=== PATIENT | male | born 1960 | race Caucasian/White ===

== ENCOUNTER 2017-01-16 11:15 | Observation (INO) ==
[2017-01-16] MEDS ORDERED: Aspirin 81 MG TAB.CHEW PO ONE (11:32)
[2017-01-16] MEDS ORDERED: Nitroglycerin 0.4 MG TAB.SUBL SL PRN (11:43)
[2017-01-16 11:55] LABS: Basophils # 0.1 K/mcL (0.0-0.2); Basophils % 0.7 %; Eosinophils # 0.3 K/mcL (0.0-0.6); Eosinophils % 3.8 %; Hematocrit 53.1 % (37.5-50.1); Hemoglobin 17.8 g/dL (12.9-16.9); Immature Granulocytes % 0.3 % (0-4); Lymphocytes # 2.7 K/mcL (0.6-4.6); Lymphocytes % 31.5 %; Mean Corpuscular HGB Conc 33.5 g/dL (31.6-35.5); Mean Corpuscular Volume 89.5 fL (83.0-100.0); Mean Platelet Volume 10.4 fL (9.4-12.4); Monocytes # 0.5 K/mcL (0.0-1.3); Monocytes % 5.5 %; Platelet Count 231 K/mcL (140-400); Red Blood Count 5.93 M/mcL (4.19-5.50); Red Cell Distribution Width 13.8 % (11.5-14.5); Segmented Neutrophils % 58.2 %
--- NOTE | 2017-01-16 11:58 | Emergency Department Note ---
Disposition Clinical Impression: Slurred speech Hypertension Qualifiers: Hypertension type: unspecified Qualified Code(s): I10 - Essential (primary) hypertension Chest pain Qualifiers: Chest pain type: unspecified Qualified Code(s): R07.9 - Chest pain, unspecified TIA (transient ischemic attack) Qualifiers: Transient cerebral ischemia type: unspecified Qualified Code(s): G45.9 - Transient cerebral ischemic attack, unspecified Disposition: Admitted As Inpatient Condition: Good Time of Disposition: 13:32 General Adult HPI - General Chief complaint: ED Neuro Symptoms/Deficit Stated complaint: Slurred Speech/Dizzy Time Seen by Provider: 01/16/17 11:18 Source: patient Mode of arrival: wheelchair Limitations: no limitations Nursing Notes Reviewed: Yes Vital Signs Reviewed: Yes - History of Present Illness HPI Narrative: 56-year-old male presents to the ED complaining of slurred speech and mild chest and epigastric pain as well as shortness of breath. Patient states that he went to work today and they noticed he was having slurred speech so they sent him to the urgent care who then sent him here to the emergency department by private vehicle. He states that he feels he does not have slurred speech he has not has not had any weakness or numbness or tingling going down any of his sides. He understood any drooping of his face. He has not had any headaches or blurry vision. He had a similar episode approximate one year ago seen here and diagnosed with a TIA and had high blood pressure and started on amlodipine for blood pressure medication. He has not been nauseous or vomiting. He has not had any fevers. He has been short of breath he says normal as he does smoke. He does have a little bit of epigastric pain that radiates up into his chest. Says it feels like reflux a normally has this. He has not taken any medication for this. There is no worsening with exertion of the symptoms. He has had no changes in bowel movements pain with urination or abdominal pain. He has had no back pain. Patient has no other complaints Pain Scale: 0 - Related Data Home Medications Medication Instructions Recorded Confirmed Lovastatin [Mevacor] 20 mg PO HS 01/16/17 01/16/17 Tamsulosin [Flomax] 0.4 mg PO DAILY 01/16/17 01/16/17 Previous Rx's Medication Instructions Recorded amLODIPine [Norvasc] 5 mg PO DAILY #30 tablet 06/28/15 Allergies Allergy/AdvReac Type Severity Reaction Status Date / Time No Known Allergies Allergy Verified 01/16/17 11:26 Review of Systems: 10 point review of systems done and negative unless otherwise stated in history of present illness. All systems ED: reviewed and negative except as stated. Review of Systems: As Per HPI Past Medical History - Past Medical History Attestation: Yes The following information was validated with the patient. Medical history: Reports: hypertension Psychiatric history: Reports: no psych history - Social History Smoking Status: Current every day smoker Smokeless Tobacco Status: No Alcohol use: Reports: none Drug use: Reports: none Physical Exam - General Limitations: no limitations General appearance: alert, in no apparent distress - Head Head exam: atraumatic, normocephalic, normal inspection - Eye Eye exam: Present: normal appearance, PERRL, EOMI - ENT ENT exam: normal exam, normal oropharynx, mucous membranes moist - Neck Neck exam: Present: normal inspection, full ROM, trachea midline - Chest Chest inspection: Present: normal inspection, symmetric chest wall rise - Respiratory Respiratory exam: Present: normal lung sounds bilaterally - Cardiovascular Cardiovascular exam: Present: regular rate, normal rhythm, normal heart sounds - Abdominal Exam Abdominal exam: Present: soft, Non-Tender, normal bowel sounds. Absent: tenderness, distention, guarding, rebound, rigidity, Kulkarni's sign, Rovsing's sign, tenderness at McBurney's Point - Extremities Exam Extremities exam: Present: normal inspection, full ROM. Absent: tenderness, pedal edema - Expanded Lower Extremity Exam Neurovascular/Tendon exam: Absent: pulse deficit, motor deficit, sensory deficit , tendon deficit - Back Exam Back exam: Present: normal inspection, full ROM. Absent: tenderness - Neurological Exam Neurological exam: Present: alert, oriented X3, CN II-XII intact. Absent: motor sensory deficit - Expanded Neurological Exam Patient oriented to: Present: person, place, time Speech: Present: fluid speech Cranial nerves: EOM function (II, III, IV, ): Normal, facial sensation (V): Normal, facial palsy (VII): Normal, spinal accessory function (XI): Normal, tongue deviation (XII): Normal Cerebellar function: finger to nose: Normal, heel to blake: Normal Cerebellar function: normal gait, Romberg normal Motor strength - LUE: 5/5 Motor strength - RUE: 5/5 Motor strength - LLE: 5/5 Motor strength - RLE: 5/5 Upper motor neuron exam: mary neglect: Absent bilaterally, pronator drift: Absent bilaterally, Babinski sign: Absent bilaterally, sensory extinction: Absent bilaterally Sensory exam upper extremity: light touch: Normal Sensory exam lower extremity: light touch: Normal Coma Scale Eye Opening: Spontaneous Coma Scale Motor Response: Obeys Commands Coma Scale Verbal Response: Oriented Coma Scale Total: 15 - Skin Skin exam: Present: warm, dry, intact, normal color Course Course Narrative: 56-year-old male presents the ED for slurred speech and some epigastric pain shortness of breath. After talking to him more there was no neurological deficits he does not feel like he has slurred speech he does not sound like this on his exam so we did not have a stroke alert. This started at approximately 2-1/2 hours prior to his arrival according to friends but he states he has not had a difference. At this time we will just a CT of his head , chest x-ray and EKG. We will do basic labs including CBC, CMP, troponin, coags. We will place an IV and give him fluids. Patient's okay with this plan. We will reevaluate patient for disposition Vital Signs Temperature 97.6 F 01/16/17 11:22 Pulse Rate 83 01/16/17 11:22 Respiratory Rate 20 01/16/17 11:22 Blood Pressure 162/116 01/16/17 11:22 O2 Sat by Pulse Oximetry 96 01/16/17 11:22 Temperature 97.6 F 01/16/17 11:22 Pulse Rate 78 01/16/17 15:07 Respiratory Rate 18 01/16/17 15:07 Blood Pressure 143/96 01/16/17 15:07 O2 Sat by Pulse Oximetry 94 01/16/17 15:07 Oxygen Delivery Oxygen Delivery Room Air Medical Decision Making - MDM Narrative Medical decision making narrative: 56-year-old male since the ED for slurred speech, hypertension and chest discomfort. Patient is a history of hypertension and was started on amlodipine and partly one year ago when he was diagnosed with having a TIA where he had blurry vision and generalized dizziness. Today he said he was going to work and when he showed up to work.His speech was slurred more than normal so sent him to an urgent care. Patient did go they are saying that he was more worried about the swelling in his eyes and his lips when he wakes up for the past 3 days. They were worried about possible stroke so they sent him via private vehicle to be seen here. When patient arrived he said he was not having any slurred speech no refill given any slurred speech. He states the swelling was gone on the eyes in his mouth. He is not complaining of a generalized weakness. Neuro exam he had an NIH scale of 0 at this time we decided not to x- ray the stroke alert. He did not have any neurological deficits. I discussed this with the patient and he agreed with it. We did do a head CT which came back negative he was also complaining of some chest discomfort so I gave him 1 of nitroglycerin which did help lower his blood pressure to where he is now 126/ 86. Due to the neurolological changes and coming in hypertensive and the chest pressure we will admit him for further evaluation. Pt and family are all okay with this plan. Spoke with the hospitalist who agreed to accept the patient to their service. Pt is admitted in stable condition. Chest X-Ray 01/16/17 11:35 IMPRESSION: No acute process. D/ / 01/16/2017 12:14:26 Marcial Palmer MD / stacey Interpreting Provider: Marcial Palmer MD Head CT 01/16/17 11:35 IMPRESSION: No acute intracranial abnormality. D/ / Julius Perez MD / Julius Perez MD Interpreting Provider: Julius Perez MD - Medical Records Medical records reviewed: Yes I reviewed the patient's medical records. - Lab Data Lab results reviewed: Yes I reviewed the patient's lab results. Result diagrams: 01/16/17 11:48 01/16/17 11:48 Lab Results 01/16/17 01/16/17 01/16/17 Range/Units 11:48 11:48 11:48 WBC 8.6 (4.3-11.1) K/mcL RBC 5.93 H (4.19-5.50) M/mcL Hgb 17.8 H (12.9-16.9) g/dL Hct 53.1 H (37.5-50.1) % MCV 89.5 (83.0-100.0) fL MCH 30.0 (28.0-33.3) pg MCHC 33.5 (31.6-35.5) g/dL RDW 13.8 (11.5-14.5) % Plt Count 231 (140-400) K/mcL MPV 10.4 (9.4-12.4) fL Immature Gran % 0.3 (0-4) % Seg Neutrophils % 58.2 % Lymphocytes % 31.5 % Monocytes % 5.5 % Eosinophils % 3.8 % Basophils % 0.7 % Neutrophils # 5.0 (1.6-8.9) K/mcL Lymphocytes # 2.7 (0.6-4.6) K/mcL Monocytes # 0.5 (0.0-1.3) K/mcL Eosinophils # 0.3 (0.0-0.6) K/mcL Basophils # 0.1 (0.0-0.2) K/mcL PT 11.3 (9.4-12.1) Seconds INR 1.1 APTT 31.9 (26.0-36.0) Seconds Sodium 140 (136-145) mEq/L Potassium 4.7 H (3.5-4.5) mEq/L Chloride 106 (98-109) mEq/L Carbon Dioxide 24 (19-29) mEq/L BUN 13 (8-26) mg/dL Creatinine 0.94 (0.72-1.25) mg/dL Est GFR ( Amer) > 60 (> 60) Est GFR (Non-Af Amer) > 60 (> 60) BUN/Creatinine Ratio 14 (6-26) Glucose 89 (70-99) mg/dL Calculated Osmolality 290 (280-300) Calcium 9.6 (8.6-10.8) mg/dL Troponin I (0-0.03) ng/mL 01/16/17 Range/Units 11:48 WBC (4.3-11.1) K/mcL RBC (4.19-5.50) M/mcL Hgb (12.9-16.9) g/dL Hct (37.5-50.1) % MCV (83.0-100.0) fL MCH (28.0-33.3) pg MCHC (31.6-35.5) g/dL RDW (11.5-14.5) % Plt Count (140-400) K/mcL MPV (9.4-12.4) fL Immature Gran % (0-4) % Seg Neutrophils % % Lymphocytes % % Monocytes % % Eosinophils % % Basophils % % Neutrophils # (1.6-8.9) K/mcL Lymphocytes # (0.6-4.6) K/mcL Monocytes # (0.0-1.3) K/mcL Eosinophils # (0.0-0.6) K/mcL Basophils # (0.0-0.2) K/mcL PT (9.4-12.1) Seconds INR APTT (26.0-36.0) Seconds Sodium (136-145) mEq/L Potassium (3.5-4.5) mEq/L Chloride (98-109) mEq/L Carbon Dioxide (19-29) mEq/L BUN (8-26) mg/dL Creatinine (0.72-1.25) mg/dL Est GFR ( Amer) (> 60) Est GFR (Non-Af Amer) (> 60) BUN/Creatinine Ratio (6-26) Glucose (70-99) mg/dL Calculated Osmolality (280-300) Calcium (8.6-10.8) mg/dL Troponin I 0.00 (0-0.03) ng/mL - Radiology Data Radiology results reviewed: Yes I reviewed the patient's radiology results. - EKG Data EKG #1 EKG attestation: Yes I reviewed and interpreted this EKG. EKG results narrative: EKG done 1128 are reviewed by myself and the attending shows normal sinus rhythm at a rate 73, TN interval 164, QRS 110, QTc 396 with a normal axis. No signs of any ST changes. There are flipped T waves in V1. Otherwise no T-wave abnormalities. No signs of a heart strain or hypertrophy. No signs of any heart blocks. No signs of WPW/Brugada syndrome. Compared with an old EKG done 06/28/15 which also shows an normal sinus rhythm with no acute changes. Attestation Statement - Attestation Attestation: I examined this patient and my medical decision-making was reviewed with the Resident Physician, Dr. Ceron. I agree with the documented findings, disposition and treatment plan as described except to the extent set forth below. Patient is a 56-year-old white male with a prior history of TIA as well as hypertension who presents to the emergency department sent from an outpatient urgent care facility for concern with possible stroke. Patient reportedly presented at that facility 90 minutes ago with complaints of slurred speech right upper extremity weakness in dizziness. The physician at that facility had been there for approximately one hour with an evaluation and then allowed a family member to bring him to the ER. Patient states that the symptoms have been ongoing for the past 48 hours. Patient has not fallen or had a syncopal episode, no visual changes or facial droop. Patient does complain of some mild substernal chest pressure sensation but there is no radiation of this pain, no associated nausea vomiting, no diaphoresis, patient denies any other associated symptoms. On arrival to the emergency Department patient was immediately assessed and found to have an NIH score equal to 0, speech is clear, with no focal neuro deficits appreciated. Patient does admit to feeling better and although still hypertensive blood pressures improved from reported that pressure at the urgent care and no medications were administered. Patient did state that he took his blood pressure medicines this morning before leaving for work. I agree with patient's physical exam findings as documented. EKG was normal sinus rhythm with no acute ischemia. Due to the chest pain patient was given aspirin and nitroglycerin on arrival which did decrease his blood pressure and also resolve his chest discomfort. Patient was sent for CT of the head which was unremarkable, portal chest x-ray was also unremarkable. Lab evaluation was performed and was all within normal limits including a normal troponin. Patient remains with stable neuro exam and improved blood pressure on reassessment. Patient agrees to admission for further evaluation of TIA like symptoms as well as elevated blood pressure. Case was discussed with the hospitalist who accepts patient for admission for further evaluation and treatment.
[2017-01-16 12:07] LABS: BUN/Creatinine Ratio 14 (6-26); Blood Urea Nitrogen 13 mg/dL (8-26); Calcium 9.6 mg/dL (8.6-10.8); Carbon Dioxide 24 mEq/L (19-29); Chloride 106 mEq/L (98-109); Glucose 89 mg/dL (70-99); INR 1.1; Osmolality,Calculated 290 (280-300); Potassium 4.7 mEq/L (3.5-4.5); Prothrombin Time 11.3 Seconds (9.4-12.1); Sodium 140 mEq/L (136-145); eGFR For African Americans > 60 (> 60); eGFR For Non-African Americans > 60 (> 60)
[2017-01-16 12:09] LABS: Activated Partial Thrombo Time 31.9 Seconds (26.0-36.0)
[2017-01-16] MEDS ORDERED: Acetaminophen 325 MG TABLET PO PRN (17:48)
[2017-01-16] MEDS ORDERED: Naloxone 0.4 MG/ML INJ IVP PRN (17:48)
[2017-01-16] MEDS ORDERED: Mag Hydrox/Al Hydrox/Simeth 30 ML UDC PO PRN (17:48)
--- NOTE | 2017-01-16 17:58 | Internal Med History&Physical ---
Date of Encounter: 01/16/17 Time of Encounter: 17:57 Assessment and Plan (1) TIA (transient ischemic attack) Current visit: Yes Status: Acute 56/male Admitted with possibility of a TIA. Was also complaining of chest pain off and on. This is a second visit to of the patient to the hospital for similar symptoms in last 2 years. Patient was admitted for TIA to rule out CVA. Plan: Admitted as an observation. Aspirin 81 mg/Lipitor 40 mg. Echocardiogram/ultrasound carotid/MRI brain. Physical therapy/occupational therapy evaluation. Trend troponin. Lipid panel tomorrow If patient has MRI brain negative, and his chest pain is persistent and please call cardiology for further evaluation. Qualifiers: Transient cerebral ischemia type: unspecified Qualified Code(s): G45.9 - Transient cerebral ischemic attack, unspecified (2) Chest pain Current visit: Yes Status: Acute See plan above Qualifiers: Chest pain type: unspecified Qualified Code(s): R07.9 - Chest pain, unspecified (3) Hypertension Current visit: Yes Status: Acute She is known to have a hypertension. He is on amlodipine 5 mg. At this point I would like to hold the antihypertensive medication for permissive elevated blood pressure in view of underlying TIA/CVA. Qualifiers: Hypertension type: essential hypertension Qualified Code(s): I10 - Essential (primary) hypertension (4) Slurred speech Current visit: Yes Status: Acute Resolved Medical decision making: This patient has a [id number] risk of worsening in spite of being on appropriate medication due to the underlying complex medical comorbid conditions Internal Medicine - H&P: HPI Chief complaint: Slurring of speech Admitted From: Emergency Dept Plans for Post Hospital Care: Home History of present illness: PCP: [facility]. Background past medical history: Hypertension, hyperlipidemia, arthritis, Brief history of present illness: Patient was at work this morning where he and his colleagues noted a slurred speech. This was the reason patient's colleagues asked him to come to the emergency room in a private vehicle. Patient was also complaining of occasional headache, some numbness on the left side of the body which lasted for more than 10 minutes. Patient was concerned regarding the numbness as well as the slurring of speech and that is the reason he came to emergency room for further evaluation.Patient denies chest pain, shortness of breath, nausea, vomiting, abdominal pain, dizziness and diarrhea. Workup in the emergency room: Patient was evaluated in the emergency room. CT head was negative for any acute CVA. Chest x-ray was within normal limits. Basic labs were drawn. Reason for admission: Possible TIA to rule out CVA. Family history: Non-contributory Past Med Surg Social Fam HX - Past Medical History Medical history: hypertension Psychiatric history: no psych history - Social History Smoking Status: Current every day smoker Smokeless Tobacco Status: No Alcohol use: none Drug use: none Internal Medicine - H&P: Meds amLODIPine [Norvasc] 5 mg PO DAILY #30 tablet 06/28/15 [Rx] Lovastatin [Mevacor] 20 mg PO HS 01/16/17 [History] Tamsulosin [Flomax] 0.4 mg PO DAILY 01/16/17 [History] 3 Allergy/AdvReac Type Severity Reaction Status Date / Time No Known Allergies Allergy Verified 01/16/17 11:26 All Systems PM: A 10-system review of systems was performed and is negative for pertinent findings except as documented above in the HPI. - Constitutional Constitutional: no chills, no fever(s), no night sweats - EENT Eyes: no change in vision, no discharge, no pain, no photophobia Ears: no ear discharge, no ear pain, no tinnitus Nose, mouth and throat: no dysphagia, no nasal discharge, no neck pain, no sore throat - Cardiovascular Cardiovascular ROS IM: no chest pain, no diaphoresis, no dyspnea, no lightheadedness, no palpitations, no syncope - Respiratory Respiratory: no cough, no dyspnea, no wheezing, no excessive phlegm production - Gastrointestinal Gastrointestinal: no abdominal pain, no diarrhea, no hematemesis, no hematochezia, no melena, no nausea, no vomiting - Musculoskeletal Musculoskeletal ROS IM: no numbness, no tingling - Integumentary Integumentary IM: no rash, no unusual bruising - Neurological Neurological ROS: no confusion, no convulsions, no focal weakness, no numbness, no tingling, no tremor(s) - Hematologic/Lymphatic Hematologic/Lymphatic: no easy bruising - Constitutional Vitals: Temp Pulse Resp BP Pulse Ox 97.6 F 78 18 121/79 94 01/16/17 11:22 01/16/17 15:07 01/16/17 16:56 01/16/17 16:56 01/16/17 15:07 General appearance: Present: A&O X 3, pleasant, no acute distress, answers questions appropriately - Head Head exam: Present: atraumatic, normocephalic - Eye Eye exam: Present: PERRL, conjuntiva pink, sclera anicteric Pupils: Present: PERRL - Neck Neck exam general surgery: Present: supple, trachea midline. Absent: lymphadenopathy - Respiratory Respiratory exam: Present: CTAB. Absent: accessory muscle use, rales, rhonchi, wheezes - Cardiovascular Cardiovascular exam: Present: RRR, +S1, +S2. Absent: diastolic murmur, gallop, rubs, systolic murmur - GI/Abdominal GI/Abdominal exam: Present: normal bowel sounds, soft, no peritoneal signs. Absent: distended, tenderness - Extremities Exam Extremities exam: Present: warm, radial pulses palpable and symmetrical. Absent : calf tenderness, cyanotic, pedal edema - Neurological Exam Neurological exam: Present: CN II-XII intact, oriented X3, no focal deficits. Absent: pronater drift, facial droop, speech deficit - Skin Skin exam: Present: dry, intact Internal Med - H&P Results - Labs CBC & Chem 7: 01/16/17 11:48 01/16/17 11:48
[2017-01-17 00:54] LABS: Basophils # 0.1 K/mcL (0.0-0.2); Basophils % 0.8 %; Eosinophils # 0.4 K/mcL (0.0-0.6); Eosinophils % 5.6 %; Hematocrit 50.4 % (37.5-50.1); Immature Granulocytes % 0.3 % (0-4); Lymphocytes # 2.9 K/mcL (0.6-4.6); Lymphocytes % 36.6 %; Mean Corpuscular HGB Conc 33.7 g/dL (31.6-35.5); Mean Corpuscular Hemoglobin 30.1 pg (28.0-33.3); Mean Corpuscular Volume 89.4 fL (83.0-100.0); Mean Platelet Volume 10.5 fL (9.4-12.4); Monocytes # 0.7 K/mcL (0.0-1.3); Monocytes % 8.4 %; Neutrophils # 3.8 K/mcL (1.6-8.9); Platelet Count 224 K/mcL (140-400); Red Blood Count 5.64 M/mcL (4.19-5.50); Red Cell Distribution Width 13.9 % (11.5-14.5); Segmented Neutrophils % 48.3 %
[2017-01-17 01:04] LABS: INR 1.1; Prothrombin Time 11.7 Seconds (9.4-12.1)
[2017-01-17 01:06] LABS: Activated Partial Thrombo Time 31.2 Seconds (26.0-36.0)
[2017-01-17 01:16] LABS: Alanine Aminotransferase 48 Units/L (0-55); Albumin 3.4 g/dL (3.5-5.0); Albumin/Globulin Ratio 1.1 (1.1-2.2); Alkaline Phosphatase 89 Units/L (38-126); Aspartate Amino Transferase 21 Units/L (5-34); BUN/Creatinine Ratio 15 (6-26); Bilirubin,Total 0.6 mg/dL (0.2-1.2); Blood Urea Nitrogen 15 mg/dL (8-26); Calcium 9.2 mg/dL (8.6-10.8); Carbon Dioxide 24 mEq/L (19-29); Chloride 105 mEq/L (98-109); Chol/HDL Ratio 6.2 (0-4.9); Cholesterol 174 mg/dL (< 200); Globulin 3.2 g/dL (2.4-3.5); Glucose 109 mg/dL (70-99); HDL Cholesterol 28 mg/dL (40-59); LDL Cholesterol,Calculated 107 mg/dL (0-99); Magnesium 2.2 mg/dL (1.6-2.6); Osmolality,Calculated 287 (280-300); Potassium 4.4 mEq/L (3.5-4.5); Sodium 138 mEq/L (136-145); Total Protein 6.6 g/dL (6.0-8.3); Triglycerides 196 mg/dL (< 150); eGFR For African Americans > 60 (> 60); eGFR For Non-African Americans > 60 (> 60)
[2017-01-17 04:14] LABS: Amphetamine Screen,Urine Negative ng/mL (Cutoff=1000); Barbiturate Screen,Urine Negative ng/mL (Cutoff=200); Benzodiazepines Screen,Urine Negative ng/mL (Cutoff=200); Cannabinoid Screen,Urine Negative ng/mL (Cutoff = 50); Cocaine Screen,Urine Negative ng/mL (Cutoff= 300); Opiate Screen,Urine Negative ng/mL (Cutoff=300); Phencyclidine Screen,Urine Negative ng/mL (Cutoff=25)
[2017-01-17] MEDS ORDERED: Aspirin Enteric Coated 81 MG Tablet PO SCH (09:00)
[2017-01-17] MEDS ORDERED: amLODIPine 5 MG TABLET PO SCH (09:15)
[2017-01-17] MEDS ORDERED: Nicotine 21 MG PATCH.TD24 TD SCH (09:15)
[2017-01-17 10:51] VITALS: BP 125/79
--- NOTE | 2017-01-17 13:45 | Discharge Summary ---
Date of Encounter: 01/17/17 Time of Encounter: 09:00 - Discharge Diagnosis (1) TIA (transient ischemic attack) Priority: Primary Status: Acute Comments: Pt began having slurred speech at work prior to arrival. His coworkers encouraged him to go to the ER for evaluation. He also reports occasional headaches, numbness to left side of body. Pt denies chest pain, SOB, n/v, abdominal pain, dizziness or diarrhea. Pt had returned to baseline today, no deficits, pt ambulates with a steady gait , speech is clear, strengths equal and strong bilaterally both upper and lower extremities. Pt family history is non-contributory. He is a heavy smoker, decreasing from 6 PPD to less than 2PPD. He also reports a long history of ETOH abuse, drinking "as much as I could get my hands on", to no use for 2 years. He denies recreational drug use. Lipid panel elevated, pt will go home on ASA 81mg daily and Lipitor 40mg po daily and will continue his other home medications. Chest X-Ray 01/16/17 11:35 IMPRESSION: No acute process. D/ / 01/16/2017 12:14:26 Marcial Palmer MD / stacey Interpreting Provider: Marcial Palmer MD Head CT 01/16/17 11:35 IMPRESSION: No acute intracranial abnormality. D/ / Julius Perez MD / Julius Perez MD Interpreting Provider: Julius Perez MD Echocardiogram 01/17/17 17:51 Impressions: LVEF 60-65%. Mild left ventricular diastolic dysfunction. Normal right ventricular structure and function. No significant valvular dysfunction. No pulmonary hypertension. No evidence of PFO with agitated saline contrast. Left Ventricular Wall Motion: Rest Echo Findings All wall segments showed normal motion. Findings: Study Quality * Technically adequate exam. ECG Findings * Normal sinus rhythm. Left Ventricle * LVEF 60-65%. * Normal LV chamber size, wall thickness and function. * Mild left ventricular diastolic dysfunction. Right Ventricle * Normal right ventricular structure and function. Left Atrium * Normal left atrial size. Right Atrium * Normal right atrial size. Aortic Valve * No aortic regurgitation. * Trileaflet aortic valve. * Mildly sclerotic aortic valve leaflets. * No aortic stenosis. Mitral Valve * No mitral regurgitation. * Normal mitral valve structure. * No mitral stenosis. Tricuspid Valve * Tricuspid valve not well visualized. * No tricuspid regurgitation. Pulmonic Valve * Pulmonic valve is not well visualized. * No pulmonic stenosis. * No pulmonic regurgitation. Pulmonary Artery * Pulmonary artery not well visualized. Aorta * Not well visualized. Pericardium * There is no pericardial effusion present. Interatrial Septum * No evidence of PFO by color Doppler. * No evidence of PFO with agitated saline contrast. IVC * The IVC is not well evaluated. Brain MRI 01/17/17 17:52 IMPRESSION: No acute intracranial abnormality. Minimal chronic microvascular disease. D/ / Isac Pinedo MD / Isac Pinedo MD Interpreting Provider: Isac Pinedo MD Qualifiers: Transient cerebral ischemia type: unspecified Qualified Code(s): G45.9 - Transient cerebral ischemic attack, unspecified (2) Chest pain Priority: Primary Status: Acute Comments: Plan as above. Qualifiers: Chest pain type: unspecified Qualified Code(s): R07.9 - Chest pain, unspecified (3) Slurred speech Priority: Secondary Status: Resolved Comments: Resolved. (4) Hypertension Priority: Secondary Status: Chronic Comments: Continue home medications. Qualifiers: Hypertension type: essential hypertension Qualified Code(s): I10 - Essential (primary) hypertension (5) Tobacco abuse Priority: Secondary Status: Chronic Comments: Pt states that he has decreased his smoking from 6 PPD to 2 PPD. He has declined nicotine patches here and declines rx for home. - Discharge Medications Prescriptions: Aspirin Enteric Coated [Aspirin EC] 81 mg PO DAILY #30 tablet. Atorvastatin [Lipitor] 40 mg PO HS #30 tablet Nicotine Patch [Nicoderm] 21 mg TD DAILY #28 patch.td24 Home Medications: amLODIPine [Norvasc] 5 mg PO DAILY #30 tablet 06/28/15 [Rx] Lovastatin [Mevacor] 20 mg PO HS 01/16/17 [History] Tamsulosin [Flomax] 0.4 mg PO DAILY 01/16/17 [History] Aspirin Enteric Coated [Aspirin EC] 81 mg PO DAILY #30 tablet. 01/17/17 [Rx] Atorvastatin [Lipitor] 40 mg PO HS #30 tablet 01/17/17 [Rx] Nicotine Patch [Nicoderm] 21 mg TD DAILY #28 patch.td24 01/17/17 [Rx] Allergies/Adverse Reactions: 3 Allergy/AdvReac Type Severity Reaction Status Date / Time No Known Allergies Allergy Verified 01/16/17 11:26 Procedures/tests Complete & Pending: Procedures Performed prior 72 hours Category Date Time Status MR head/brain wo con [MR] Routine MRI 01/17/17 17:52 Completed EV carotid duplex imaging BI Routine Y 01/17/17 17:51 Completed EV echocardiogram Routine Y 01/17/17 17:51 Completed Date of admission: 01/16/17 13:38 Primary care physician: Lyle Mckeon MD Consults: 01/16/17 17:54 Consult to Occupational Therapy [CONS] Routine Comment: Evaluate, develop and implement POC Reason for Consult: TIA/CVA Consult to Physical Therapy [CONS] Routine Comment: Evaluate, develop and implement POC Reason for Consult: TIA/CVA Discharging clinician: Ana Rosa Garcia Anticipated date of discharge: 01/17/17 - Patient Status Disposition: Home, Self-Care Condition: Good Functional capacity at discharge: independent ambulation Overall status at discharge: patient is back to baseline - Discharge Instructions Instructions: Chest Pain (DC), Chronic Hypertension (DC) Follow Up With: Lyle Mckeon MD [Primary Care Provider] - Additional Instructions: Follow up with your PCP in the next 7-10 days for a recheck Return to the ER as needed for any other problems or concerns or if your symptoms return or worsen Take your medications as directed. Return to work after you are cleared by your family doctor. - Diet and Activity Activity: return to work once cleared by your PCP/specialist, resume usual activities as tolerated Diet: low fat, low cholesterol Interval History: Please see assessment and plan for hospital course. Hospital course: Mr. Alcazar is a 56 year old male - Time Spent with Patient Total time spent providing and/or coordinating discharge services: Less than 30 minutes - Constitutional Vitals: Temp Pulse Resp BP Pulse Ox 97.3 F L 77 16 125/79 93 01/17/17 10:50 01/17/17 10:50 01/17/17 10:50 01/17/17 10:50 01/17/17 10:50 General appearance: Present: cooperative, A&O X 3, pleasant, no acute distress, answers questions appropriately - Head Head exam: Present: atraumatic, normal inspection, normocephalic - Eye Eye exam: Present: normal appearance, PERRL, conjuntiva pink, sclera anicteric Pupils: Present: PERRL - Neck Neck exam general surgery: Present: normal inspection, supple, trachea midline. Absent: lymphadenopathy - Respiratory Respiratory exam: Present: decreased breath sounds, CTAB. Absent: accessory muscle use, rales, respiratory distress, rhonchi, wheezes - Cardiovascular Cardiovascular exam: Present: RRR, +S1, +S2. Absent: diastolic murmur, gallop, rubs, systolic murmur - GI/Abdominal GI/Abdominal exam: Present: hepatomegaly, normal bowel sounds, soft. Absent: distended, tenderness - Extremities Exam Extremities exam: Present: normal capillary refill, normal inspection, warm, radial pulses palpable and symmetrical. Absent: calf tenderness, cyanotic, pedal edema, tenderness - Neurological Exam Neurological exam: Present: alert, CN II-XII intact, normal gait, oriented X3, no focal deficits, strengths equal and symetr throughout. Absent: altered, motor sensory deficit, facial droop, speech deficit - Expanded Neurological Exam Neurological exam expanded: Present: protecting the airway. Absent: expressive aphasia, total aphasia Patient oriented to: Present: person, place, time Speech: Absent: garbled, slurred Cranial Nerves: EOM's intact PM: Normal, nystagmus PM: Normal, tongue deviation PM: Normal Cerebellar function: finger to nose: Normal Neuro motor strength exam: LUE: 5, RUE: 5, LLE: 5, RLE: 5 Coma Scale Eye Opening: Spontaneous Coma Scale Motor Response: Obeys Commands Coma Scale Verbal Response: Oriented Coma Scale Total: 15 - Skin Skin exam: Present: dry, intact, normal color, warm. Absent: rash
--- NOTE | 2017-01-18 16:26 | Electrocardiograph Report ---
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
== END 2017-01-17 15:03 | disposition home or self-care (01) ==
LOC: 3BNU 11:15 → EMEROO 11:15 → 3BNU 16:18
PROVIDERS: ADMIT Internal Medicine; ATTEND Registered Nurse

== ENCOUNTER 2018-04-18 13:53 | Inpatient (IN) ==
[2018-04-18] MEDS ORDERED: Isovue-370 500 ML BOTTLE IVP ONE (15:12)
--- NOTE | 2018-04-18 15:31 | Emergency Department Note ---
Disposition Clinical Impression: Hemoptysis CAP (community acquired pneumonia) Qualifiers: Laterality: left Lung location: upper lobe of lung Qualified Code(s): J18.1 - Lobar pneumonia, unspecified organism Disposition: Admitted As Inpatient Condition: Fair General Adult HPI - General Chief complaint: ED Nausea/Vomiting/Diarrhea Stated complaint: hemoptysis Time Seen by Provider: 04/18/18 15:00 Source: patient, family Limitations: no limitations Nursing Notes Reviewed: Yes Vital Signs Reviewed: Yes - History of Present Illness HPI Narrative: Patient presents with hemoptysis which is a significant amount and is bright red blood and started 2 days ago the patient has a history of smoking but does not eyes any weight loss. He does not use any anticoagulant medication including aspirin. Has had significant fatigue over the last 6 months. He is not more short of breath than usual. Has never been diagnosed with COPD. He does have also some rhinorrhea but no complaint of fever. No blood in the urine or stool. No bruising of the skin or skin rash. No pain or numbness of the extremities. No sneezing. No blurred vision. Social history: Smoker, no drugs Pain Scale: 0 - Related Data Home Medications Medication Instructions Recorded Confirmed Lovastatin [Mevacor] 20 mg PO HS 01/16/17 01/16/17 RX: Tamsulosin [Flomax] 0.4 mg PO DAILY 01/16/17 01/16/17 Previous Rx's Medication Instructions Recorded RX: amLODIPine [Norvasc] 5 mg PO DAILY #30 tablet 06/28/15 RX: Aspirin Enteric Coated 81 mg PO DAILY #30 tablet 01/17/17 [Aspirin EC] RX: Atorvastatin [Lipitor] 40 mg PO HS #30 tablet 01/17/17 RX: Nicotine Patch [Nicoderm] 21 mg TD DAILY #28 patch.td24 01/17/17 Allergies Allergy/AdvReac Type Severity Reaction Status Date / Time No Known Allergies Allergy Verified 01/16/17 11:26 Review of Systems: As Per HPI Past Medical History - Past Medical History Medical history: Reports: hypertension Psychiatric history: Reports: no psych history - Social History Smoking Status: Current every day smoker Smokeless Tobacco Status: No Alcohol use: Reports: none Drug use: Reports: none Physical Exam CONSTITUTIONAL: Alert and oriented X3, well-nourished, well appearing, in no apparent distress HEAD: Normocephalic; atraumatic. EYES: PERRL, no scleral icterus. NOSE: The nose is normal in appearance without rhinorrhea RESP: Normal chest excursion with respiration; breath sounds clear and equal bilaterally; no wheezes, rhonchi, or rales CARD: Regular rhythm, without murmurs, rub or gallop ABD: Non-distended; non-tender, soft,without rigidity, rebound or guarding SKIN: Normal for age and race; warm and dry; no apparent lesions ORAL: Well hydrated, moist mucous membranes. No drooling, trismus or stridor noted THROAT: Normal appearance without exudates, erythema or edema. The uvula is midline. Airway widely patent. No evidence of abscess NECK: No anterior cervical adenopathy, trachea is midline - General Limitations: no limitations General appearance: alert, in no apparent distress Course Vital Signs Temperature 97.8 F 04/18/18 13:54 Pulse Rate 86 04/18/18 13:54 Respiratory Rate 18 04/18/18 13:54 Blood Pressure 162/113 04/18/18 13:54 O2 Sat by Pulse Oximetry 95 04/18/18 13:54 Temperature 97.6 F 04/18/18 19:18 Pulse Rate 74 04/18/18 19:18 Respiratory Rate 16 04/18/18 19:18 Blood Pressure 174/96 04/18/18 19:18 O2 Sat by Pulse Oximetry 96 04/18/18 19:18 Oxygen Delivery Oxygen Delivery Room Air Medical Decision Making - MDM Narrative Medical decision making narrative: Patient did have some coughing while I was in the room and there was some bright red blood in the tissue paper that he is breathing comfortably at this time. Labs are ordered as well as a CTA of the chest to look for malignancy. Patient denies any recent travel or exposure to patients with tuberculosis. He has had some night sweats. 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 I did go back and speak the patient and his again and explained the plan and they are in agreement with the plan forward 1844 - Medical Records Medical records reviewed: Yes I reviewed the patient's medical records. - Lab Data Lab results reviewed: Yes I reviewed the patient's lab results. Result diagrams: 04/18/18 15:27 04/18/18 15:27 Lab Results 04/18/18 04/18/18 04/18/18 Range/Units 15:27 15:27 15:27 WBC 10.7 (4.3-11.1) K/mcL RBC 5.75 H (4.19-5.50) M/mcL Hgb 17.3 H (12.9-16.9) g/dL Hct 50.3 H (37.5-50.1) % MCV 87.5 (83.0-100.0) fL MCH 30.1 (28.0-33.3) pg MCHC 34.4 (31.6-35.5) g/dL RDW 14.2 (11.5-14.5) % Plt Count 227 (140-400) K/mcL MPV 10.6 (9.4-12.4) fL PT (9.4-12.1) Seconds INR Sodium 137 (136-145) mEq/L Potassium 3.9 (3.5-5.1) mEq/L Chloride 105 (98-107) mEq/L Carbon Dioxide 28 (23-29) mEq/L BUN 9 (6-20) mg/dL Creatinine 0.87 (0.70-1.30) mg/dL Est GFR ( Amer) > 60 (> 60) Est GFR (Non-Af Amer) > 60 (> 60) BUN/Creatinine Ratio 10 (6-26) Glucose 113 H (70-105) mg/dL Calculated Osmolality 283 (280-300) Calcium 9.7 (8.6-10.3) mg/dL Total Bilirubin (0.3-1.0) mg/dL Direct Bilirubin (0.0-0.2) mg/dL Indirect Bilirubin (0.0-1.2) mg/dL AST (13-39) Units/L ALT (7-52) Units/L Alkaline Phosphatase (34-104) Units/L Serum Total Protein (6.4-8.9) g/dL Albumin (3.5-5.7) g/dL Globulin (2.4-3.5) g/dL Albumin/Globulin Ratio (1.1-2.2) Blood Type A POSITIVE Antibody Screen NEGATIVE 04/18/18 04/18/18 Range/Units 15:27 15:27 WBC (4.3-11.1) K/mcL RBC (4.19-5.50) M/mcL Hgb (12.9-16.9) g/dL Hct (37.5-50.1) % MCV (83.0-100.0) fL MCH (28.0-33.3) pg MCHC (31.6-35.5) g/dL RDW (11.5-14.5) % Plt Count (140-400) K/mcL MPV (9.4-12.4) fL PT 12.4 H (9.4-12.1) Seconds INR 1.1 Sodium (136-145) mEq/L Potassium (3.5-5.1) mEq/L Chloride (98-107) mEq/L Carbon Dioxide (23-29) mEq/L BUN (6-20) mg/dL Creatinine (0.70-1.30) mg/dL Est GFR ( Amer) (> 60) Est GFR (Non-Af Amer) (> 60) BUN/Creatinine Ratio (6-26) Glucose (70-105) mg/dL Calculated Osmolality (280-300) Calcium (8.6-10.3) mg/dL Total Bilirubin 0.7 (0.3-1.0) mg/dL Direct Bilirubin 0.1 (0.0-0.2) mg/dL Indirect Bilirubin 0.6 (0.0-1.2) mg/dL AST 22 (13-39) Units/L ALT 42 (7-52) Units/L Alkaline Phosphatase 97 (34-104) Units/L Serum Total Protein 7.0 (6.4-8.9) g/dL Albumin 4.3 (3.5-5.7) g/dL Globulin 2.7 (2.4-3.5) g/dL Albumin/Globulin Ratio 1.6 (1.1-2.2) Blood Type Antibody Screen - Radiology Data Radiology results reviewed: Yes I reviewed the patient's radiology results.
[2018-04-18 15:51] LABS: Hematocrit 50.3 % (37.5-50.1); Hemoglobin 17.3 g/dL (12.9-16.9); Mean Corpuscular HGB Conc 34.4 g/dL (31.6-35.5); Mean Corpuscular Hemoglobin 30.1 pg (28.0-33.3); Mean Corpuscular Volume 87.5 fL (83.0-100.0); Mean Platelet Volume 10.6 fL (9.4-12.4); Platelet Count 227 K/mcL (140-400); Red Blood Count 5.75 M/mcL (4.19-5.50); Red Cell Distribution Width 14.2 % (11.5-14.5)
[2018-04-18 16:02] LABS: BUN/Creatinine Ratio 10 (6-26); Blood Urea Nitrogen 9 mg/dL (6-20); Calcium 9.7 mg/dL (8.6-10.3); Carbon Dioxide 28 mEq/L (23-29); Chloride 105 mEq/L (98-107); Glucose 113 mg/dL (70-105); INR 1.1; Osmolality,Calculated 283 (280-300); Potassium 3.9 mEq/L (3.5-5.1); Prothrombin Time 12.4 Seconds (9.4-12.1); Sodium 137 mEq/L (136-145); eGFR For Non-African Americans > 60 (> 60)
[2018-04-18 16:03] LABS: Albumin 4.3 g/dL (3.5-5.7); Albumin/Globulin Ratio 1.6 (1.1-2.2); Bilirubin,Direct 0.1 mg/dL (0.0-0.2); Bilirubin,Indirect 0.6 mg/dL (0.0-1.2); Bilirubin,Total 0.7 mg/dL (0.3-1.0); Globulin 2.7 g/dL (2.4-3.5)
[2018-04-18] MEDS ORDERED: cefTRIAXone 2,000 MG in 0.9 % Sodium Chloride Mini Bag 100 ML IVPB ONE (17:04)
[2018-04-18] MEDS ORDERED: Azithromycin 500 MG in D5% in Water 250 ML IVPB ONE (17:04)
[2018-04-18] MEDS ORDERED: cefTRIAXone 2,000 MG in Water for inj. (sterile) 20 ML 20 ML IVP ONE (17:15)
[2018-04-18] MEDS ORDERED: traMADol 50 MG TABLET PO PRN (17:18)
[2018-04-18] MEDS ORDERED: Acetaminophen 325 MG TABLET PO PRN (17:18)
[2018-04-18] MEDS ORDERED: Naloxone 0.4 MG/ML INJ IVP PRN (17:18)
--- NOTE | 2018-04-18 17:38 | Internal Med History&Physical ---
Date of Encounter: 04/18/18 Time of Encounter: 17:35 Internal Medicine - H&P: HPI Admitted From: Home Plans for Post Hospital Care: Home History of present illness: Mr. Alcazar is a 58 year old male with hx of smoking, HTN, HLP, and BPH presents with hemoptysis with significant amount and is bright red blood and started 2 days ago the patient has a history of smoking but does not eyes any weight loss. He does not use any anticoagulant medication including aspirin. Has had significant fatigue over the last 6 months. He is not more short of breath than usual. Has never been diagnosed with COPD. He does have also some rhinorrhea but no complaint of fever. No blood in the urine or stool. No bruising of the skin or skin rash. No pain or numbness of the extremities. No sneezing. No blurred vision. Social history: Smoker, no drugs. At the ED, his vitals were stable, labs were unremarkable including normal PT/INR, platelet, and H/H. CT chest showed possible pna. Pt will be admitted for further evaluation. Code status discussed with pt, he wishes full code. Past Med Surg Social Fam HX - Past Medical History Medical history: hypertension Psychiatric history: no psych history - Social History Smoking Status: Current every day smoker Smokeless Tobacco Status: No Alcohol use: none Drug use: none Internal Medicine - H&P: Meds amLODIPine [Norvasc] 5 mg PO DAILY #30 tablet 06/28/15 [Rx] Lovastatin [Mevacor] 20 mg PO HS 01/16/17 [History] Tamsulosin [Flomax] 0.4 mg PO DAILY 01/16/17 [History] Aspirin Enteric Coated [Aspirin EC] 81 mg PO DAILY #30 tablet. 01/17/17 [Rx] Atorvastatin [Lipitor] 40 mg PO HS #30 tablet 01/17/17 [Rx] Nicotine Patch [Nicoderm] 21 mg TD DAILY #28 patch.td24 01/17/17 [Rx] Allergy/AdvReac Type Severity Reaction Status Date / Time No Known Allergies Allergy Verified 01/16/17 11:26 All Systems PM: A 10-system review of systems was performed and is negative for pertinent findings except as documented above in the HPI. Review of systems: REVIEW OF SYSTEMS: CONSTITUTIONAL: No weight loss, fever, chills, weakness or fatigue. HEENT: Eyes: No visual loss, blurred vision, double vision or yellow sclerae. Ears, Nose, Throat: No hearing loss, sneezing, congestion, runny nose or sore throat. SKIN: No rash or itching. CARDIOVASCULAR: No chest pain, chest pressure or chest discomfort. No palpitations or edema. RESPIRATORY: No shortness of breath, see HPI. GASTROINTESTINAL: No anorexia, nausea, vomiting or diarrhea. No abdominal pain or blood. GENITOURINARY: No dysuria, urgency, or frequency. NEUROLOGICAL: No headache, dizziness, syncope, paralysis, ataxia, numbness or tingling in the extremities. No change in bowel or bladder control. MUSCULOSKELETAL: No muscle, back pain, joint pain or stiffness. HEMATOLOGIC: No anemia, bleeding or bruising. LYMPHATICS: No enlarged nodes. No history of splenectomy. PSYCHIATRIC: No history of depression or anxiety. ENDOCRINOLOGIC: No reports of sweating, cold or heat intolerance. No polyuria or polydipsia. - Constitutional Vitals: Temp Pulse Resp BP Pulse Ox 97.8 F 86 18 162/113 95 04/18/18 13:54 04/18/18 13:54 04/18/18 13:54 04/18/18 13:54 04/18/18 13:54 General appearance: Present: cooperative, A&O X 3, answers questions appropriately Exam: PHYSICAL EXAMINATION: GENERAL APPEARANCE: The patient is alert, oriented and in no acute distress. HEENT: Head is normocephalic. The sinuses are nontender. Pupils are equal and reactive. The nares are patent. Oropharynx clear without lesions. NECK: Supple without lymphadenopathy. HEART: Regular rate and rhythm. LUNGS: bilateral fine wheezes are heard. ABDOMEN: Soft, nontender, nondistended with good bowel sounds heard. Inguinal area is normal. EXTREMITIES: Without cyanosis, clubbing or edema. NEUROLOGICAL: Gross nonfocal. SKIN: Warm and dry without any rash. Internal Med - H&P Results - Labs CBC & Chem 7: 04/18/18 15:27 04/18/18 15:27 Labs: Short CBC 04/18/18 Range/Units 15:27 WBC 10.7 (4.3-11.1) K/mcL Hgb 17.3 H (12.9-16.9) g/dL Hct 50.3 H (37.5-50.1) % Plt Count 227 (140-400) K/mcL BMP 04/18/18 15:27 Sodium 137 Potassium 3.9 Chloride 105 Carbon Dioxide 28 BUN 9 Creatinine 0.87 Glucose 113 H Calcium 9.7 Liver Function 04/18/18 Range/Units 15:27 Total Bilirubin 0.7 (0.3-1.0) mg/dL Direct Bilirubin 0.1 (0.0-0.2) mg/dL AST 22 (13-39) Units/L ALT 42 (7-52) Units/L Alkaline Phosphatase 97 (34-104) Units/L Albumin 4.3 (3.5-5.7) g/dL - Impressions ITS Impressions Chest CTA 04/18/18 15:12 IMPRESSION: 1. Negative for acute pulmonary embolism. 2. Airspace opacification left upper lobe could represent pneumonia 3. Bronchial wall thickening lower lobes bilaterally could represent acute or chronic bronchitis D/ / Kike Velazquez MD / Kike Velazquez MD Interpreting Provider: Kike Velazquez MD - Assessment and plan (1) Pneumonia Current Visit: Yes Status: Acute Assessment and plan: CT showed possible PNA, will continue IV abx. Sputum cx. Blood cx sent. Qualifiers: Pneumonia type: due to unspecified organism Laterality: unspecified laterality Lung location: unspecified part of lung Qualified Code(s): J18.9 - Pneumonia, unspecified organism (2) Hemoptysis Current Visit: Yes Status: Acute Assessment and plan: 58 year old male with 50 year hx of smoking presented with acute onset of hemoptysis, amount of a small cup, bright red,started 2 days ago. reported months of months of congestion and cough. No hx of bleeding, PT/INR normal, will order PTT. Continue monitoring H/H. Pulm consulted if indicated. (3) Hyperlipidemia Current Visit: No Status: Acute Assessment and plan: continue home meds. Qualifiers: Hyperlipidemia type: pure hypercholesterolemia Qualified Code(s): E78.00 - Pure hypercholesterolemia, unspecified; E78.0 - Pure hypercholesterolemia (4) Smoker Current Visit: No Status: Chronic Assessment and plan: Nicotine patch,smoking cessation discussed with pt. (5) Hypertension Current Visit: No Status: Chronic Assessment and plan: Continue home meds. Qualifiers: Hypertension type: essential hypertension Qualified Code(s): I10 - Essent ial (primary) hypertension (6) DVT prophylaxis Current Visit: Yes Status: Acute Assessment and plan: SCDs. - Time Spent With Patient Total time spent is greater than 50% in coordination of care (as documented) at patient's floor/unit and/or counseling patient: Greater than 35 minutes
[2018-04-18] MEDS: Nicotine 21 MG PATCH.TD24 TD SCH (23:51)
[2018-04-19 04:02] LABS: Basophils # 0.1 K/mcL (0.0-0.2); Basophils % 0.8 %; Eosinophils # 0.4 K/mcL (0.0-0.6); Eosinophils % 5.1 %; Hematocrit 52.6 % (37.5-50.1); Hemoglobin 17.7 g/dL (12.9-16.9); Immature Granulocytes % 0.2 % (0-4); Lymphocytes # 3.3 K/mcL (0.6-4.6); Mean Corpuscular HGB Conc 33.7 g/dL (31.6-35.5); Mean Corpuscular Hemoglobin 29.3 pg (28.0-33.3); Mean Corpuscular Volume 87.1 fL (83.0-100.0); Mean Platelet Volume 10.5 fL (9.4-12.4); Monocytes # 0.7 K/mcL (0.0-1.3); Neutrophils # 4.1 K/mcL (1.6-8.9); Platelet Count 240 K/mcL (140-400); Red Blood Count 6.04 M/mcL (4.19-5.50); Red Cell Distribution Width 13.8 % (11.5-14.5); Segmented Neutrophils % 47.9 %
[2018-04-19 04:22] LABS: BUN/Creatinine Ratio 13 (6-26); Blood Urea Nitrogen 12 mg/dL (6-20); Calcium 9.6 mg/dL (8.6-10.3); Carbon Dioxide 24 mEq/L (23-29); Chloride 108 mEq/L (98-107); Glucose 105 mg/dL (70-105); Osmolality,Calculated 282 (280-300); Potassium 4.5 mEq/L (3.5-5.1); Sodium 136 mEq/L (136-145); eGFR For Non-African Americans > 60 (> 60)
[2018-04-19] MEDS: amLODIPine 5 MG TABLET PO SCH (07:45)
[2018-04-19] MEDS ORDERED: Nicotine 21 MG PATCH.TD24 TD SCH (09:00)
[2018-04-19] MEDS ORDERED: Aspirin Enteric Coated 81 MG Tablet PO SCH (09:00)
--- NOTE | 2018-04-19 09:12 | Pulmonology Consult Note ---
Date of Encounter: 04/19/18 Time of Encounter: 09:10 Assessment and Plan (1) Hemoptysis Current Visit: Yes Status: Acute Patient presented with submassive hemoptysis. This is secondary to acute bronchitis and pneumonia with underlying COPD although the patient is at increased risk of malignancy no clear evidence of endobronchial tumor on CT scan or primary tumor however as stated patient is definitely at increased risk of that and bronchoscopy is warranted for further evaluation of underlying bronchial anatomy. Unfortunately patient has not been nothing by mouth since admission he continues to have hemoptysis it is crucial that the patient be kept nothing by mouth while he is having active hemoptysis! Please keep a cup at bedside with patient more than 250 mL in the next 12 hours should be moved to the ICU for closer monitoring or if he coughs up more than 250 mL of bright red blood at any one time he should have moved to ICU and pulmonary called immediately Plan for bronchoscopy tomorrow morning A bronchoscopy is recommended. The procedure , risks, benefits, complications, and expected outcomes have been reviewed. Benefits of diagnosis, as well as risks to include bleeding, infection, pneumothorax which may require surgical intervention, and in a small population. The patient is aware that sometimes test is nondiagnostic. Discussed with patient and agrees to proceed. (2) COPD exacerbation Current Visit: Yes Status: Acute Patient has extensive evidence of emphysema and a very significant smoking history recommend treating his COPD exacerbation including prednisone 40 mg which can be given over 5 days start Symbicort 160/4.52 puffs twice a day schedule duo nebs every 4 hours with every one hour albuterol (3) Pneumonia Current Visit: Yes Status: Acute Agree with treatment for community-acquired pneumonia send respiratory infection panel and sputum culture and blood cultures if not obtain also edema urinary antigens for Legionella and strep pneumo Qualifiers: Pneumonia type: due to unspecified organism Laterality: unspecified laterality Lung location: unspecified part of lung Qualified Code(s): J18.9 - Pneumonia, unspecified organism (4) Smoker Current Visit: No Status: Chronic Strongly encourage the patient to stop smoking nicotine patch can be provided if needed Thank you for this consultation Do not hesitate to call me with any questions or concerns Dario Lee [phone] History of Present Illness Consult date: 04/19/18 Requesting physician: Sebastian Bassett Reason for consult: pneumonia Chief complaint: Difficulty in breathing History of present illness: This is a pleasant 58-year-old gentleman with a history of hypertension who presented with hemoptysis as well as increased difficulty in breathing that started over last 2 days. He has an extensive smoking history and is occurring every day smoker since adolescence. And currently not taking any blood thinning medications. Nothing like this happen before. Denies any of fevers chills or weight loss but has had increasing fatigue. Denies any epistaxis or coffee- ground emesis. 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 Patient has been co ughing up about a teaspoon of bright red blood periodically over the last 2 days. Denies any travel to endemic areas of tuberculosis no known history of exposure to tuberculosis no IV drug use or incarceration. Smokes heavily 3-4 packs a day and Ativan 1 pack a day started in adolescence. No formal diagnosis of COPD however. 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 No exotic pets in the home Past Med Surg Social Fam HX - Past Medical History Medical history: hypertension Psychiatric history: no psych history - Social History Smoking Status: Current every day smoker Packs per day: 1 Smokeless Tobacco Status: No Alcohol use: none Drug use: none - Family History Father Hx Family Cardiac Disorders: Yes (Cardiomegaly) Hx Family Respiratory Disorders: No Hx Family Cancer: No Hx Family GI Disorders: No Hx Family Genitourinary Disorders: No Hx Family Endocrine Disorder: Yes (DM) Hx Family Musculoskeletal Disorders: No Hx Family Neuromuscular Disorders: No Hx Family Neurologic Disorders: No Hx Family HEENT Disorders: No Hx Family Autoimmune Disorders: No Hx Family Reproductive Disorders: No Hx Family Psychosocial Disorders: No Hx Family Medical Disorders: No Medications and Allergies amLODIPine [Norvasc] 5 mg PO DAILY #30 tablet 06/28/15 [Rx] Lovastatin [Mevacor] 20 mg PO HS 01/16/17 [History] Tamsulosin [Flomax] 0.4 mg PO DAILY 01/16/17 [History] Aspirin Enteric Coated [Aspirin EC] 81 mg PO DAILY #30 tablet. 01/17/17 [Rx] Atorvastatin [Lipitor] 40 mg PO HS #30 tablet 01/17/17 [Rx] Nicotine Patch [Nicoderm] 21 mg TD DAILY #28 patch.td24 01/17/17 [Rx] Allergy/AdvReac Type Severity Reaction Status Date / Time No Known Allergies Allergy Verified 01/16/17 11:26 All Systems: The remainder of the systems were reviewed and are negative Physical Examination Vital Signs: Vital Signs, Last 4 Hours Temp Pulse Resp BP Pulse Ox 04/19/18 06:30 97.5 F L 62 15 158/96 95 General appearance: no acute distress Eyes: nonicteric ENT: oropharynx moist, other (No evidence of epistaxis) Neck: supple Effort: normal Auscultation: bilateral: rhonchi Cardiovascular: regular rate and rhythm Gastrointestinal: normoactive bowel sounds Integumentary: normal Extremities: no cyanosis, no edema, no clubbing Musculoskeletal: no deformities normal mental status, pupils equal and round mood appropriate Results - Laboratory Findings CBC and BMP: 04/19/18 03:41 04/19/18 03:41 PT/INR, D-dimer PT 12.4 Seconds (9.4-12.1) H 04/18/18 15:27 Abnormal lab findings: Abnormal lab results RBC 6.04 M/mcL (4.19-5.50) H 04/19/18 03:41 Hgb 17.7 g/dL (12.9-16.9) H 04/19/18 03:41 Hct 52.6 % (37.5-50.1) H 04/19/18 03:41 PT 12.4 Seconds (9.4-12.1) H 04/18/18 15:27 Chloride 108 mEq/L (98-107) H 04/19/18 03:41 - Diagnostic Findings Chest x-ray: report reviewed, image reviewed CT scan - chest: report reviewed, image reviewed - Clinical Findings Intake & Output: Intake & Output 04/18/18 04/19/18 04/19/18 23:59 07:59 15:59 Intake Total Balance Weight 114.2 kg 115.2 kg Consult Discharge Plan - Plan Referrals: NONE,PCP [Primary Care Provider] -
--- NOTE | 2018-04-19 09:14 | Pre-Sedation Evaluation ---
Pre-sedation evaluation - Pre-sedation checklist Date of procedure: 04/19/18 Procedure: Bronch Recent Vitals: Last Vital Signs Temp 97.5 F L 04/19/18 06:30 Pulse 62 04/19/18 06:30 Resp 15 04/19/18 06:30 BP 158/96 04/19/18 06:30 Pulse Ox 95 04/19/18 06:30 H&P (including ROS) documented in medical record: Yes Previous reaction to sedatives/anesthetics: No Dietary Status: NPO after Midnight ASA Classification *see protocol: CLASS II-Mild systemic disease
[2018-04-19] MEDS: Ipratropium/Albuterol Neb 3 ML IH SCH ×3 (09:56→21:35)
[2018-04-19] MEDS: Budesonide/Formoterol 160/4.5 1 PUFF INH IH SCH ×2 (09:58→21:35)
[2018-04-19] MEDS: predniSONE 20 MG TABLET PO SCH (10:12)
--- NOTE | 2018-04-19 10:29 | Internal Med Progress Note ---
Hospitalist Progress Note - Encounter Date of Encounter: 04/19/18 Time of Encounter: 10:27 - Subjective Interval History: Pt reported coughed up a table spoon fresh bright red blood this morning. - Exam Vitals: Temp Pulse Resp BP Pulse Ox 97.5 F L 62 16 158/96 96 04/19/18 06:30 04/19/18 06:30 04/19/18 09:56 04/19/18 09:56 04/19/18 09:56 Exam: PHYSICAL EXAMINATION: GENERAL APPEARANCE: The patient is alert, oriented and in no acute distress. HEENT: Head is normocephalic. The sinuses are nontender. Pupils are equal and reactive. The nares are patent. Oropharynx clear without lesions. NECK: Supple without lymphadenopathy. HEART: Regular rate and rhythm. LUNGS: bilateral fine wheezes are heard. ABDOMEN: Soft, nontender, nondistended with good bowel sounds heard. Inguinal area is normal. EXTREMITIES: Without cyanosis, clubbing or edema. NEUROLOGICAL: Gross nonfocal. SKIN: Warm and dry without any rash. - Assessment and Plan (1) Pneumonia Current Visit: Yes Status: Acute Assessment and Plan: CT showed possible PNA, will continue IV abx. Sputum cx. Blood cx sent. (2) Hemoptysis Current Visit: Yes Status: Acute Assessment and Plan: 58 year old male with 50 year hx of smoking presented with acute onset of hemoptysis, amount of a small cup, bright red,started 2 days ago. reported months of months of congestion and cough. No hx of bleeding, PT/INR, PTT normal. H/H on the high normal side, ordered erythropoitin, Continue monitoring H/H. Pulm consulted. (3) Hyperlipidemia Current Visit: No Status: Acute Assessment and Plan: continue home meds. (4) Smoker Current Visit: No Status: Chronic Assessment and Plan: Nicotine patch,smoking cessation discussed with pt. (5) Hypertension Current Visit: No Status: Chronic Assessment and Plan: Continue home meds. (6) DVT prophylaxis Current Visit: Yes Status: Acute Assessment and Plan: SCDs. - Time Spent with Patient Total time spent is greater than 50% in coordination of care (as documented) at patient's floor/unit and/or counseling patient: Greater than 35 minutes Plan of Care Discussed with: patient Internal Medicine: Result - Labs CBC & Chem 7: 04/19/18 03:41 04/19/18 03:41 Labs: Short CBC 04/18/18 04/19/18 Range/Units 15:27 03:41 WBC 10.7 8.7 (4.3-11.1) K/mcL Hgb 17.3 H 17.7 H (12.9-16.9) g/dL Hct 50.3 H 52.6 H (37.5-50.1) % Plt Count 227 240 (140-400) K/mcL Neutrophils # 4.1 (1.6-8.9) K/mcL BMP 04/18/18 04/19/18 15:27 03:41 Sodium 137 136 Potassium 3.9 4.5 Chloride 105 108 H Carbon Dioxide 28 24 BUN 9 12 Creatinine 0.87 0.94 Glucose 113 H 105 Calcium 9.7 9.6 Liver Function 04/18/18 Range/Units 15:27 Total Bilirubin 0.7 (0.3-1.0) mg/dL Direct Bilirubin 0.1 (0.0-0.2) mg/dL AST 22 (13-39) Units/L ALT 42 (7-52) Units/L Alkaline Phosphatase 97 (34-104) Units/L Albumin 4.3 (3.5-5.7) g/dL - ABG Interpretation ABG results: PT/INR, D-dimer PT 12.4 Seconds (9.4-12.1) H 04/18/18 15:27 - Impressions Impressions Chest CTA 04/18/18 15:12 IMPRESSION: 1. Negative for acute pulmonary embolism. 2. Airspace opacification left upper lobe could represent pneumonia 3. Bronchial wall thickening lower lobes bilaterally could represent acute or chronic bronchitis D/ / Kike Velazquez MD / Kike Velazquez MD Interpreting Provider: Kike Velazquez MD Consult Discharge Plan - Plan Referrals: NONE,PCP [Primary Care Provider] - (1) Pneumonia Qualifiers: Pneumonia type: due to unspecified organism Laterality: unspecified laterality Lung location: unspecified part of lung Qualified Code(s): J18.9 - Pneumonia, unspecified organism (3) Hyperlipidemia Qualifiers: Hyperlipidemia type: pure hypercholesterolemia Qualified Code(s): E78.00 - Pure hypercholesterolemia, unspecified; E78.0 - Pure hypercholesterolemia (5) Hypertension Qualifiers: Hypertension type: essential hypertension Qualified Code(s): I10 - Essential (primary) hypertension
[2018-04-19 11:30] LABS: Adenovirus Not Detected (Not Detect); Bordetella Pertussis Not Detected (Not Detect); Chlamydophila pneumoniae Not Detected (Not Detect); Coronavirus 229E Not Detected (Not Detect); Coronavirus HKU1 Not Detected (Not Detect); Coronavirus NL63 Not Detected (Not Detect); Coronavirus OC43 Not Detected (Not Detect); Human Metapneumovirus Not Detected (Not Detect); Human Rhinovirus/Enterovirus Not Detected (Not Detect); Influenza A Subtype 2009 H1 Not Detected (Not Detect); Influenza A Untypeable Not Detected (Not Detect); Influenza B Not Detected (Not Detect); Mycoplasma pneumoniae Not Detected (Not Detect); Parainfluenza Virus 1 Not Detected (Not Detect); Parainfluenza Virus 2 Not Detected (Not Detect); Parainfluenza Virus 3 Not Detected (Not Detect); Parainfluenza Virus 4 Not Detected (Not Detect); Respiratory Syncytial Virus Not Detected (Not Detect)
[2018-04-19] MEDS: Sennosides 8.6 MG TABLET PO SCH (13:19)
[2018-04-19] MEDS: Azithromycin 500 MG in D5% in Water 250 ML IVPB SCH (17:14)
[2018-04-19] MEDS: cefTRIAXone 2,000 MG in Water for inj. (sterile) 20 ML 20 ML IVP SCH (17:14)
[2018-04-19] MEDS: Nicotine 21 MG PATCH.TD24 TD SCH (21:54)
[2018-04-19] MEDS ORDERED: Psyllium 1 PACKET POWD.PACK PO PRN (23:48)
[2018-04-20] MEDS: Ipratropium/Albuterol Neb 3 ML IH SCH ×4 (03:38→22:57)
[2018-04-20 04:19] LABS: Hematocrit 50.1 % (37.5-50.1); Hemoglobin 16.6 g/dL (12.9-16.9); Mean Corpuscular HGB Conc 33.1 g/dL (31.6-35.5); Mean Corpuscular Hemoglobin 28.8 pg (28.0-33.3); Mean Corpuscular Volume 86.8 fL (83.0-100.0); Mean Platelet Volume 10.8 fL (9.4-12.4); Platelet Count 232 K/mcL (140-400); Red Blood Count 5.77 M/mcL (4.19-5.50); Red Cell Distribution Width 13.9 % (11.5-14.5)
[2018-04-20] MEDS: amLODIPine 5 MG TABLET PO SCH (07:25)
[2018-04-20] MEDS: Sennosides 8.6 MG TABLET PO SCH (07:26)
[2018-04-20] MEDS: predniSONE 20 MG TABLET PO SCH (07:26)
[2018-04-20] MEDS: Ringers Solution, Lactated 1,000 ML IVC SCH (08:00)
--- NOTE | 2018-04-20 08:03 | Anesthesia Evaluation PreOp ---
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 01/17/17 [Rx] Atorvastatin [Lipitor] 40 mg PO HS #30 tablet 01/17/17 [Rx] Nicotine Patch [Nicoderm] 21 mg TD DAILY #28 patch.td24 01/17/17 [Rx] Allergy/AdvReac Type Severity Reaction Status Date / Time No Known Allergies Allergy Verified 01/16/17 11:26 - Meds/Allergy Pre-op Review Medications Reviewed: Yes Allergies Reviewed: Yes Beta Blockers on Current Med List: No Anesthesia Results - Labs 04/20/18 04:02 04/19/18 03:41 Laboratory Tests 04/18/18 04/19/18 04/19/18 15:27 03:41 03:41 PT 12.4 H INR 1.1 APTT 33.3 Est GFR (Non-Af Amer) > 60 Calcium 9.6 Anesthesia Exam Vital Signs/O2 Sat/Glucose, Most Recent Temp Pulse Resp BP Pulse Ox 97.4 F L 70 17 110/70 93 04/20/18 07:07 04/20/18 07:07 04/20/18 07:07 04/20/18 07:07 04/20/18 07:30 Blood Glucose* 115 Weight: 115 KG, BMI 32 NPO (# of Hours): >8 - HEENT Mallampati: I Teeth: Normal Oral Opening: Greater than 3 - Cardiac Rhythm: Regular - Pulmonary Breath Sounds: bilateral Clear Respiratory Effort: Symmetrical Anesthesia Assess/Plan ASA Score: 3 Anesthetic Plan: General Monitoring Plan: Standard Monitors Recovery Plan: PACU
[2018-04-20] MEDS ORDERED: Ipratropium/Albuterol Neb 3 ML ONE (08:15)
[2018-04-20] MEDS ORDERED: *HR* HYDROmorphone (PF) 1 MG/ML SYRINGE IVP PRN (08:21)
[2018-04-20] MEDS ORDERED: Ipratropium Neb 0.5 MG NEBULIZER IH ONE (08:21)
[2018-04-20] MEDS ORDERED: Racepinephrine Neb 0.5 ML VIAL IH ONE (08:21)
[2018-04-20] MEDS ORDERED: Albuterol 2.5 MG/3 ML NEBULIZER IH ONE (08:24)
[2018-04-20] MEDS ORDERED: *HR* Propofol 200 MG/20 ML VIAL IVP ONE ×3 (08:25→08:47)
[2018-04-20] MEDS ORDERED: Lidocaine -MPF 2% 2 ML VIAL ONE (08:25)
[2018-04-20] MEDS ORDERED: *HR* Succinylcholine 200 MG/10 ML VIAL IVP ONE (08:25)
[2018-04-20] MEDS ORDERED: Lidocaine -MPF 4% 5 ML AMPUL TP ONE (08:27)
[2018-04-20] MEDS ORDERED: Dexamethasone 4 MG/ML VIAL ONE (08:43)
[2018-04-20] MEDS ORDERED: *HR* Magnesium Sulfate 1 GM/2 ML VIAL ONE (08:51)
--- NOTE | 2018-04-20 09:19 | Pulmonology Progress Note ---
Date of Encounter: 04/20/18 Time of Encounter: 09:17 Assessment and Plan (1) Hemoptysis Current Visit: Yes Status: Acute S/p Bronchosocopy with dried clot in lingula no endobronchial lesion. Hemoptysis s/t to Pneumonia/Acute bronchitis. Submassive and in fact as resolved. Stable to tranfer back to floor for monitoring. Normal to cough up blood tinged sputum after bronchoscopy. Will f/u cytology and microbiology cultures from bronch (2) COPD exacerbation Current Visit: Yes Status: Acute IV decadron given in bronch today. Cont prednisone will need 2 week taper at discharge Symbicort 160/4.5 2 puffs bid at discharge ALISIA prn Schedule duonebs while inpatient q6 hours Outpatient Pulm f/u for PFTs and management (3) Pneumonia Current Visit: Yes Status: Acute f/u mcor data. ABx x 7-10 days for CAP Qualifiers: Pneumonia type: due to unspecified organism Laterality: unspecified laterality Lung location: unspecified part of lung Qualified Code(s): J18.9 - Pneumonia, unspecified organism (4) Smoker Current Visit: No Status: Chronic tobacco cessation counseling given. Please Call with questions Subjective Principal diagnosis: Hemoptysis Interval history: Jai seen in endoscopy prior to procedure. Very minimal to no significant hemoptysis overnight. Says he feels a bit better. Objective PUL Vital signs: Last Vital Signs Temp 98.6 F 04/20/18 08:22 Pulse 92 04/20/18 08:22 Resp 18 04/20/18 08:22 BP 143/88 04/20/18 08:22 Pulse Ox 98 04/20/18 08:22 General appearance: no acute distress Neck: supple, JVD Effort: normal Auscultation: bilateral: wheezes (faint exp wheeze bilaterally ) Cardiovascular: regular rate and rhythm Gastrointestinal: normoactive bowel sounds, absent bowel sounds, hypoactive bowel sounds Integumentary: normal Extremities: no cyanosis, no edema, no clubbing Musculoskeletal: no deformities normal mental status, non-focal exam mood appropriate Results - Laboratory Findings CBC and BMP: 04/20/18 04:02 04/19/18 03:41 PT/INR, D-dimer PT 12.4 Seconds (9.4-12.1) H 04/18/18 15:27 Abnormal lab findings: Abnormal lab results WBC 12.4 K/mcL (4.3-11.1) H 04/20/18 04:02 RBC 5.77 M/mcL (4.19-5.50) H 04/20/18 04:02 PT 12.4 Seconds (9.4-12.1) H 04/18/18 15:27 Chloride 108 mEq/L (98-107) H 04/19/18 03:41 POC Glucose 110 mg/dL (70-99) H 04/20/18 00:55 - Microbiology Findings Microbiology Findings: Microbiology, Last 48 Hours 04/19/18 10:10 Sputum Culture - Preliminary Sputum - Diagnostic Findings Chest x-ray: report reviewed, image reviewed CT scan - chest: report reviewed, image reviewed - Clinical Findings Intake & Output: Intake & Output 04/19/18 04/20/18 04/20/18 23:59 07:59 15:59 Intake Total 0 / 0 800 / 800 Output Total 600 / 600 Balance -600 / -600 800 / 800 Weight 114.7 kg Consult Discharge Plan - Plan Referrals: NONE,PCP [Primary Care Provider] -
--- NOTE | 2018-04-20 09:42 | Anesthesia Evaluation Post Op ---
Date of Encounter: 04/20/18 Time of Encounter: 09:20 - Discharge PostOp Status: Transfer Patient to floor (Patient's vital signs have been reviewed. Patient is stable postoperatively and has adequately recovered from anesthesia. Patient is determined to have stable airway patency and respiratory function including respiratory rate and oxygen saturation. Patient has a stable heart rate, blood pressure and adequate hydration. Patients mental status is acceptable. Patients temperature is appropriate. Pain and nausea are adequately controlled.)
[2018-04-20] MEDS: Budesonide/Formoterol 160/4.5 1 PUFF INH IH SCH ×2 (09:47→22:57)
[2018-04-20 11:11] LABS: Appearance of Body Fluid Cloudy (Clear); Volume of Body Fluid 11 mL; Volume of Body Fluid 9 mL
--- NOTE | 2018-04-20 11:49 | Internal Med Progress Note ---
Hospitalist Progress Note - Encounter Date of Encounter: 04/20/18 Time of Encounter: 11:46 - Subjective Interval History: Pt reported coughed up a table spoon fresh bright red blood this morning. - Exam Vitals: Temp Pulse Resp BP Pulse Ox 98.4 F 83 20 122/74 97 04/20/18 09:34 04/20/18 09:34 04/20/18 09:47 04/20/18 09:34 04/20/18 09:47 Exam: PHYSICAL EXAMINATION: GENERAL APPEARANCE: The patient is alert, oriented and in no acute distress. HEENT: Head is normocephalic. The sinuses are nontender. Pupils are equal and reactive. The nares are patent. Oropharynx clear without lesions. NECK: Supple without lymphadenopathy. HEART: Regular rate and rhythm. LUNGS: bilateral fine wheezes are heard. ABDOMEN: Soft, nontender, nondistended with good bowel sounds heard. Inguinal area is normal. EXTREMITIES: Without cyanosis, clubbing or edema. NEUROLOGICAL: Gross nonfocal. SKIN: Warm and dry without any rash. - Assessment and Plan (1) Pneumonia Current Visit: Yes Status: Acute Assessment and Plan: CT showed possible PNA, will continue IV abx. Sputum cx. Blood cx sent. (2) Hemoptysis Current Visit: Yes Status: Acute Assessment and Plan: 04/19 58 year old male with 50 year hx of smoking presented with acute onset of hemoptysis, amount of a small cup, bright red,started 2 days ago. reported months of months of congestion and cough. No hx of bleeding, PT/INR, PTT normal. H/H on the high normal side, ordered erythropoitin, Continue monitoring H/H. Pulm consulted. 04/20 Status post bronchoscopy this morning, try blood clots identified at lingula lobe, no intraoral bronchial lesion. Lavage fluid sent for cx. Continue IV antibiotics, plan to switch to oral antibiotics tomorrow. (3) Hyperlipidemia Current Visit: No Status: Acute Assessment and Plan: continue home meds. (4) Smoker Current Visit: No Status: Chronic Assessment and Plan: Nicotine patch,smoking cessation discussed with pt. (5) Hypertension Current Visit: No Status: Chronic Assessment and Plan: Continue home meds. (6) DVT prophylaxis Current Visit: Yes Status: Acute Assessment and Plan: SCDs. - Time Spent with Patient Total time spent is greater than 50% in coordination of care (as documented) at patient's floor/unit and/or counseling patient: Greater than 35 minutes Plan of Care Discussed with: patient Internal Medicine: Result - Labs CBC & Chem 7: 04/20/18 04:02 04/19/18 03:41 Labs: Short CBC 04/20/18 Range/Units 04:02 WBC 12.4 H (4.3-11.1) K/mcL Hgb 16.6 (12.9-16.9) g/dL Hct 50.1 (37.5-50.1) % Plt Count 232 (140-400) K/mcL - ABG Interpretation ABG results: PT/INR, D-dimer PT 12.4 Seconds (9.4-12.1) H 04/18/18 15:27 Consult Discharge Plan - Plan Referrals: NONE,PCP [Primary Care Provider] - (1) Pneumonia Qualifiers: Pneumonia type: due to unspecified organism Laterality: unspecified laterality Lung location: unspecified part of lung Qualified Code(s): J18.9 - Pneumonia, unspecified organism (3) Hyperlipidemia Qualifiers: Hyperlipidemia type: pure hypercholesterolemia Qualified Code(s): E78.00 - Pure hypercholesterolemia, unspecified; E78.0 - Pure hypercholesterolemia (5) Hypertension Qualifiers: Hypertension type: essential hypertension Qualified Code(s): I10 - Essential (primary) hypertension
[2018-04-20] MEDS: Azithromycin 500 MG in D5% in Water 250 ML IVPB SCH (17:41)
[2018-04-20] MEDS: cefTRIAXone 2,000 MG in Water for inj. (sterile) 20 ML 20 ML IVP SCH (17:41)
[2018-04-20] MEDS: Nicotine 21 MG PATCH.TD24 TD SCH (21:27)
[2018-04-21] MEDS: Ipratropium/Albuterol Neb 3 ML IH SCH ×4 (03:26→22:22)
[2018-04-21 05:01] LABS: Basophils % 0.2 %; Eosinophils % 0.1 %; Hematocrit 49.6 % (37.5-50.1); Hemoglobin 16.7 g/dL (12.9-16.9); Immature Granulocytes % 0.7 % (0-4); Lymphocytes # 2.4 K/mcL (0.6-4.6); Lymphocytes % 13.4 %; Mean Corpuscular HGB Conc 33.7 g/dL (31.6-35.5); Mean Corpuscular Hemoglobin 29.9 pg (28.0-33.3); Mean Corpuscular Volume 88.9 fL (83.0-100.0); Mean Platelet Volume 11.2 fL (9.4-12.4); Monocytes % 5.5 %; Neutrophils # 14.4 K/mcL (1.6-8.9); Platelet Count 245 K/mcL (140-400); Red Blood Count 5.58 M/mcL (4.19-5.50); Red Cell Distribution Width 14.4 % (11.5-14.5); Segmented Neutrophils % 80.1 %
[2018-04-21 05:20] LABS: BUN/Creatinine Ratio 18 (6-26); Blood Urea Nitrogen 18 mg/dL (6-20); Carbon Dioxide 23 mEq/L (23-29); Chloride 104 mEq/L (98-107); Glucose 206 mg/dL (70-105); Osmolality,Calculated 292 (280-300); Potassium 4.8 mEq/L (3.5-5.1); Sodium 137 mEq/L (136-145); eGFR For Non-African Americans > 60 (> 60)
[2018-04-21] MEDS: predniSONE 20 MG TABLET PO SCH (08:59)
[2018-04-21] MEDS: amLODIPine 5 MG TABLET PO SCH (08:59)
[2018-04-21] MEDS: Sennosides 8.6 MG TABLET PO SCH (08:59)
--- NOTE | 2018-04-21 09:20 | Pulmonology Progress Note ---
<Tanvi Nathan - Last Filed: 04/21/18 12:48> Date of Encounter: 04/21/18 Time of Encounter: 09:15 Assessment and Plan (1) Hemoptysis Current Visit: Yes Status: Acute Presented with hemoptysis. Over 100 pack year smoking history and current smoke r. Underwent bronchoscopy on 04/20. -Cytology pending (2) COPD (chronic obstructive pulmonary disease) Current Visit: Yes Status: Suspected Suspected emphesema upon reviewing his CT images with granuloma of left upper lobe. -Continue duoneb -Continue symbicort -Continue IV solu medrol 80 mg Q8HR -Follow outpatient with pulmonology Qualifiers: COPD type: emphysema Emphysema type: unspecified Qualified Code(s): J43.9 - Emphysema, unspecified (3) Smoker Current Visit: Yes Status: Acute History of tobacco abuse. Current smoker, history of 100 pack year. He was given tobacco cessation counseling. (4) Pneumonia Current Visit: Yes Status: Suspected Suspected left upper lung lobe. Can treat for community acquired pneumonia for 7-10 days. Qualifiers: Pneumonia type: due to unspecified organism Laterality: left Lung location: upper lobe of lung Qualified Code(s): J18.1 - Lobar pneumonia, unspecified organism Subjective Principal diagnosis: Hemoptysis Interval history: Mr. Alcazar was seen at bedside this morning. He continues to have hemoptysis. His vitals remained stable overnight. He denies fever, chills, nausea, emesis, shortness of breath or chest pain. Objective PUL Vital signs: Last Vital Signs Temp 97.6 F 04/21/18 07:58 Pulse 78 04/21/18 07:58 Resp 18 04/21/18 07:58 BP 137/90 04/21/18 07:58 Pulse Ox 96 04/21/18 07:58 General appearance: no acute distress, alert Eyes: nonicteric ENT: oropharynx moist Auscultation: bilateral: clear Cardiovascular: regular rate and rhythm Gastrointestinal: normoactive bowel sounds, soft, non-tender, non-distended Integumentary: normal Extremities: no edema, pulses normal normal mental status mood appropriate, affect normal Results - Laboratory Findings CBC and BMP: 04/21/18 03:39 04/21/18 03:39 PT/INR, D-dimer PT 12.4 Seconds (9.4-12.1) H 04/18/18 15:27 Abnormal lab findings: Abnormal lab results WBC 18.0 K/mcL (4.3-11.1) H 04/21/18 03:39 RBC 5.58 M/mcL (4.19-5.50) H 04/21/18 03:39 Neutrophils # 14.4 K/mcL (1.6-8.9) H 04/21/18 03:39 PT 12.4 Seconds (9.4-12.1) H 04/18/18 15:27 Glucose 206 mg/dL (70-105) H 04/21/18 03:39 POC Glucose 281 mg/dL (70-99) H 04/20/18 20:37 Fluid Appearance Cloudy (Clear) A 04/20/18 09:55 - Microbiology Findings Microbiology Findings: Microbiology, Last 48 Hours 04/19/18 10:10 Sputum Culture - Preliminary Sputum 04/20/18 09:55 Respiratory Culture - Preliminary Left Upper Lobe Lung No growth. 04/20/18 09:55 Respiratory Culture - Preliminary Left Upper Lobe Lung No growth. - Clinical Findings Intake & Output: Intake & Output 04/20/18 04/21/18 04/21/18 23:59 07:59 15:59 Intake Total 270 / 270 Balance 270 / 270 Weight 115.1 kg Consult Discharge Plan - Plan Referrals: NONE,PCP [Primary Care Provider] - <Cyndy Ac - Last Filed: 04/21/18 15:10> Date of Encounter: 04/21/18 Objective PUL Vital signs: Last Vital Signs Temp 97.6 F 04/21/18 07:58 Pulse 78 04/21/18 07:58 Resp 18 04/21/18 07:58 BP 137/90 04/21/18 07:58 Pulse Ox 96 04/21/18 07:58 Results - Laboratory Findings CBC and BMP: 04/21/18 03:39 04/21/18 03:39 PT/INR, D-dimer PT 12.4 Seconds (9.4-12.1) H 04/18/18 15:27 Abnormal lab findings: Abnormal lab results WBC 18.0 K/mcL (4.3-11.1) H 04/21/18 03:39 RBC 5.58 M/mcL (4.19-5.50) H 04/21/18 03:39 Neutrophils # 14.4 K/mcL (1.6-8.9) H 04/21/18 03:39 PT 12.4 Seconds (9.4-12.1) H 04/18/18 15:27 Glucose 206 mg/dL (70-105) H 04/21/18 03:39 POC Glucose 281 mg/dL (70-99) H 04/20/18 20:37 Fluid Appearance Cloudy (Clear) A 04/20/18 09:55 - Microbiology Findings Microbiology Findings: Microbiology, Last 48 Hours 04/19/18 10:10 Sputum Culture - Preliminary Sputum 04/20/18 09:55 Respiratory Culture - Preliminary Left Upper Lobe Lung No growth. 04/20/18 09:55 Respiratory Culture - Preliminary Left Upper Lobe Lung No growth. - Clinical Findings Intake & Output: Intake & Output 04/20/18 04/21/18 04/21/18 23:59 07:59 15:59 Intake Total 270 / 270 Balance 270 / 270 Weight 115.1 kg - Attending Attestation I examined this patient and my medical decision-making was reviewed with the Resident Physician. I agree with the documented findings, disposition and treatment plan as described except to the extent set forth below. Patient seen and examined. Labs, radiology, chart personally reviewed. 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 Bronchoscopy was done.A bronchoscopy is recommended. The procedure , risks, benefits, complications, and expected outcomes have been reviewed. Benefits of diagnosis, as well as risks to include bleeding, infection, pneumothorax which may require surgical intervention, and in a small population. The patient is aware that sometimes test is nondiagnostic. Discussed with patient and agrees to proceed.
[2018-04-21] MEDS: Budesonide/Formoterol 160/4.5 1 PUFF INH IH SCH ×2 (10:49→22:22)
[2018-04-21] MEDS: Ringers Solution, Lactated 1,000 ML IVC SCH (11:13)
--- NOTE | 2018-04-21 11:22 | Internal Med Progress Note ---
Hospitalist Progress Note - Encounter Date of Encounter: 04/21/18 Time of Encounter: 11: - Subjective Interval History: Pt reported coughed up a table spoon fresh bright red blood again this morning. - Exam Vitals: Temp Pulse Resp BP Pulse Ox 97.6 F 78 18 137/90 96 04/21/18 07:58 04/21/18 07:58 04/21/18 07:58 04/21/18 07:58 04/21/18 07:58 Exam: PHYSICAL EXAMINATION: GENERAL APPEARANCE: The patient is alert, oriented and in no acute distress. HEENT: Head is normocephalic. The sinuses are nontender. Pupils are equal and reactive. The nares are patent. Oropharynx clear without lesions. NECK: Supple without lymphadenopathy. HEART: Regular rate and rhythm. LUNGS: bilateral fine wheezes are heard. ABDOMEN: Soft, nontender, nondistended with good bowel sounds heard. Inguinal area is normal. EXTREMITIES: Without cyanosis, clubbing or edema. NEUROLOGICAL: Gross nonfocal. SKIN: Warm and dry without any rash. - Assessment and Plan (1) Pneumonia Current Visit: Yes Status: Acute Assessment and Plan: CT showed possible PNA, status post bronchoscopy with BAL. Pending cultures. Continue IV antibiotics, day 3, plan to switch oral antibiotics tomorrow. (2) Hemoptysis Current Visit: Yes Status: Acute Assessment and Plan: 04/19 58 year old male with 50 year hx of smoking presented with acute onset of hemoptysis, amount of a small cup, bright red,started 2 days ago. reported months of months of congestion and cough. No hx of bleeding, PT/INR, PTT normal. H/H on the high normal side, ordered erythropoitin, Continue monitoring H/H. Pulm consulted. 04/20 Status post bronchoscopy this morning, dry blood clots identified at lingula lobe, no intra-bronchial lesion. Lavage fluid sent for cx. Continue IV antibiotics, plan to switch to oral antibiotics tomorrow. 04/21 Patient reported coughing up fresh blood again this morning, about 25 mL. Pulmonology was notified. Continue current treatment. (3) Hyperlipidemia Current Visit: No Status: Acute Assessment and Plan: continue home meds. (4) Smoker Current Visit: No Status: Chronic Assessment and Plan: Nicotine patch,smoking cessation discussed with pt. (5) Hypertension Current Visit: No Status: Chronic Assessment and Plan: Continue home meds. (6) DVT prophylaxis Current Visit: Yes Status: Acute Assessment and Plan: SCDs. - Time Spent with Patient Total time spent is greater than 50% in coordination of care (as documented) at patient's floor/unit and/or counseling patient: Greater than 35 minutes Plan of Care Discussed with: patient Internal Medicine: Result - Labs CBC & Chem 7: 04/21/18 03:39 04/21/18 03:39 Labs: Short CBC 04/21/18 Range/Units 03:39 WBC 18.0 H (4.3-11.1) K/mcL Hgb 16.7 (12.9-16.9) g/dL Hct 49.6 (37.5-50.1) % Plt Count 245 (140-400) K/mcL Neutrophils # 14.4 H (1.6-8.9) K/mcL BMP 04/21/18 03:39 Sodium 137 Potassium 4.8 Chloride 104 Carbon Dioxide 23 BUN 18 Creatinine 0.99 Glucose 206 H Calcium 10.0 - ABG Interpretation ABG results: PT/INR, D-dimer PT 12.4 Seconds (9.4-12.1) H 04/18/18 15:27 Consult Discharge Plan - Plan Referrals: NONE,PCP [Primary Care Provider] - (1) Pneumonia Qualifiers: Pneumonia type: due to unspecified organism Laterality: unspecified laterality Lung location: unspecified part of lung Qualified Code(s): J18.9 - Pneumonia, unspecified organism (3) Hyperlipidemia Qualifiers: Hyperlipidemia type: pure hypercholesterolemia Qualified Code(s): E78.00 - Pure hypercholesterolemia, unspecified; E78.0 - Pure hypercholesterolemia (5) Hypertension Qualifiers: Hypertension type: essential hypertension Qualified Code(s): I10 - Essential (primary) hypertension
--- NOTE | 2018-04-21 11:49 | Anesthesia Evaluation PreOp ---
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 Other Medical History: GERD Anesthesia History: No Prior Anesthetic Complications, Past Anesthesia Alcohol Use: none Drug use: none Medications and Allergies No Known Home Drugs 04/20/18 [History] Allergy/AdvReac Type Severity Reaction Status Date / Time No Known Allergies Allergy Verified 04/20/18 11:25 - Meds/Allergy Pre-op Review Medications Reviewed: Yes Allergies Reviewed: Yes Beta Blockers on Current Med List: No Anesthesia Results - Labs 04/21/18 03:39 04/21/18 03:39 - Imaging EKG: report reviewed (01/16/2017 SINUS RHYTHM INFERIOR MYOCARDIAL INFARCTION, PROBABLY OLD) Additional studies: 01/17/2017 Echo Impressions: LVEF 60-65%. Mild left ventricular diastolic dysfunction. Normal right ventricular structure and function. No significant valvular dysfunction. No pulmonary hypertension. No evidence of PFO with agitated saline contrast. Anesthesia Exam Vital Signs/O2 Sat/Glucose, Most Recent Temp Pulse Resp BP Pulse Ox 97.5 F L 80 16 157/96 97 04/21/18 11:40 04/21/18 11:40 04/21/18 11:40 04/21/18 11:40 04/21/18 11:40 Blood Glucose* 151 Height: 6'3''/1.91m Weight: 253 lbs/115 kg NPO (# of Hours): 8 Pain Scale: 0 Pain Scale Used: Numeric (1 - 10) - HEENT Pupil (Motor): EOMI Mallampati: II Teeth: Normal Oral Opening: Greater than 3 - SENIOR SYSTEMS ENGINEER LOC: Oriented SENIOR SYSTEMS ENGINEER Motor: Normal RUE, Normal LUE, Normal RLE, Normal LLE, Normal Face SENIOR SYSTEMS ENGINEER Sensory: Normal: RUE, LUE, RLE, LLE, Face - Cardiac Rhythm: Regular Murmur: None - Pulmonary Breath Sounds: bilateral Clear (mild wheezing) Respiratory Effort: Symmetrical Anesthesia Assess/Plan ASA Score: 3 Level of consciousness: Cooperative, Oriented, Tranquil Anesthetic Plan: General Monitoring Plan: Standard Monitors Recovery Plan: PACU
[2018-04-21] MEDS ORDERED: *HR* Midazolam HCl 2 MG/2 ML VIAL ONE (11:53)
[2018-04-21] MEDS ORDERED: *HR* Succinylcholine 200 MG/10 ML VIAL IVP ONE (11:53)
[2018-04-21] MEDS ORDERED: Lidocaine -MPF 2% 2 ML VIAL ONE (11:53)
[2018-04-21] MEDS ORDERED: Ondansetron 4 MG/2 ML VIAL ONE (11:53)
[2018-04-21] MEDS ORDERED: Dexamethasone 4 MG/ML VIAL ONE (11:53)
[2018-04-21] MEDS ORDERED: *HR* FentaNYL (PF) 100 MCG/2 ML VIAL ONE (11:53)
[2018-04-21] MEDS ORDERED: *HR* Propofol 200 MG/20 ML VIAL IVP ONE (11:53)
[2018-04-21] MEDS ORDERED: Lidocaine -MPF 4% 5 ML AMPUL ONE (11:53)
--- NOTE | 2018-04-21 13:09 | Anesthesia Evaluation Post Op ---
Date of Encounter: 04/21/18 Time of Encounter: 13:07 - Vital Signs Vital Signs: Vital Signs/O2 Sat/Glucose, Most Recent Temp Pulse Resp BP Pulse Ox 97.4 F L 84 16 121/77 95 04/21/18 12:46 04/21/18 13:06 04/21/18 13:06 04/21/18 13:06 04/21/18 13:06 Blood Glucose* 151 - Lungs Lungs: Rhonchi - Airway Airway: Non-obstructed - Cardiovascular Regular Rate, Baseline Rhythm - Mental Status Mental Status: Alert & Oriented, Answers Appropriately - Pain Pain Scale: 2 - Nausea Vomiting Nausea Vomiting: Not Present - Hydration Hydration: NPO, Has not voided - Discharge PostOp Status: Transfer Patient to floor
[2018-04-21] MEDS: Ringers Solution, Lactated 500 ML IVC SCH (13:25)
[2018-04-21] MEDS ORDERED: *HR* EPINEPHrine 1 MG/10 ML SYRINGE ONE (15:32)
[2018-04-21] MEDS ORDERED: Saline Nasal Spray 44 ML BOTTLE NS PRN (15:34)
--- NOTE | 2018-04-21 17:43 | Electrocardiograph Report ---
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
[2018-04-21] MEDS: cefTRIAXone 2,000 MG in Water for inj. (sterile) 20 ML 20 ML IVP SCH (17:57)
[2018-04-21] MEDS: methylPREDNISolone 125 MG/2 ML VIAL IVP SCH (17:57)
[2018-04-21] MEDS: Azithromycin 500 MG in D5% in Water 250 ML IVPB SCH (17:58)
[2018-04-21] MEDS: Nicotine 21 MG PATCH.TD24 TD SCH (21:15)
[2018-04-22] MEDS: methylPREDNISolone 125 MG/2 ML VIAL IVP SCH ×2 (00:20→08:37)
[2018-04-22] MEDS: Ringers Solution, Lactated 1,000 ML IVC SCH (03:03)
[2018-04-22] MEDS: Ipratropium/Albuterol Neb 3 ML IH SCH ×2 (03:48→09:58)
[2018-04-22 07:06] VITALS: BP 135/87
[2018-04-22 08:05] LABS: Basophils % 0.1 %; Hematocrit 50.4 % (37.5-50.1); Hemoglobin 16.9 g/dL (12.9-16.9); Immature Granulocytes % 0.6 % (0-4); Lymphocytes # 1.6 K/mcL (0.6-4.6); Lymphocytes % 10.6 %; Mean Corpuscular HGB Conc 33.5 g/dL (31.6-35.5); Mean Corpuscular Volume 89.5 fL (83.0-100.0); Mean Platelet Volume 11.2 fL (9.4-12.4); Monocytes # 0.3 K/mcL (0.0-1.3); Monocytes % 1.8 %; Neutrophils # 13.3 K/mcL (1.6-8.9); Platelet Count 247 K/mcL (140-400); Red Blood Count 5.63 M/mcL (4.19-5.50); Red Cell Distribution Width 14.5 % (11.5-14.5); Segmented Neutrophils % 86.9 %
[2018-04-22 08:19] LABS: BUN/Creatinine Ratio 18 (6-26); Blood Urea Nitrogen 16 mg/dL (6-20); Carbon Dioxide 22 mEq/L (23-29); Chloride 105 mEq/L (98-107); Glucose 188 mg/dL (70-105); Osmolality,Calculated 292 (280-300); Potassium 4.6 mEq/L (3.5-5.1); Sodium 138 mEq/L (136-145); eGFR For Non-African Americans > 60 (> 60)
[2018-04-22] MEDS: Sennosides 8.6 MG TABLET PO SCH (08:36)
[2018-04-22] MEDS: amLODIPine 5 MG TABLET PO SCH (08:37)
--- NOTE | 2018-04-22 08:49 | Pulmonology Progress Note ---
<Tanvi Nathan - Last Filed: 04/22/18 16:56> Date of Encounter: 04/22/18 Time of Encounter: 09:15 Assessment and Plan (1) Hemoptysis Status: Acute Presented with hemoptysis, it is now resolved. Over 100 pack year smoking history and current smoker. Underwent bronchoscopy on 04/20. -Cytology pending (2) COPD (chronic obstructive pulmonary disease) Status: Suspected Suspected emphesema upon reviewing his CT images with granuloma of left upper lobe. -Continue duoneb -Continue symbicort -Can discharge with 40 mg of prednisone for 5 day -Follow outpatient with pulmonology Qualifiers: COPD type: emphysema Emphysema type: unspecified Qualified Code(s): J43.9 - Emphysema, unspecified (3) Smoker Status: Acute History of tobacco abuse. Current smoker, history of 100 pack year. He was given tobacco cessation counseling. (4) Pneumonia Status: Suspected Suspected left upper lung lobe. Can treat for community acquired pneumonia for 7-10 days. Qualifiers: Pneumonia type: due to unspecified organism Laterality: left Lung location: upper lobe of lung Qualified Code(s): J18.1 - Lobar pneumonia, unspecified organism Subjective Principal diagnosis: Hemoptysis Interval history: Mr. Alcazar was seen at bedside this morning. He had no new episodes of hemoptysis and noted after the bronchoscopy yesterday he had significant improvement. His vitals and hemoglobin remained stable overnight. He denies fever, chills, nausea, emesis, shortness of breath or chest pain. Objective PUL Vital signs: Last Vital Signs Temp 97.5 F L 04/22/18 07:05 Pulse 79 04/22/18 07:05 Resp 16 04/22/18 07:05 BP 135/87 04/22/18 07:05 Pulse Ox 95 04/22/18 08:30 General appearance: no acute distress Eyes: nonicteric ENT: oropharynx moist Neck: supple Auscultation: bilateral: clear Cardiovascular: regular rate and rhythm Gastrointestinal: normoactive bowel sounds, soft, non-tender, non-distended Integumentary: normal Extremities: no cyanosis, no edema, no clubbing Musculoskeletal: no deformities normal mental status, pupils equal and round mood appropriate, affect normal Results - Laboratory Findings CBC and BMP: 04/22/18 06:55 04/22/18 06:55 PT/INR, D-dimer PT 12.4 Seconds (9.4-12.1) H 04/18/18 15:27 Abnormal lab findings: Abnormal lab results WBC 15.3 K/mcL (4.3-11.1) H 04/22/18 06:55 RBC 5.63 M/mcL (4.19-5.50) H 04/22/18 06:55 Hct 50.4 % (37.5-50.1) H 04/22/18 06:55 Neutrophils # 13.3 K/mcL (1.6-8.9) H 04/22/18 06:55 PT 12.4 Seconds (9.4-12.1) H 04/18/18 15:27 Carbon Dioxide 22 mEq/L (23-29) L 04/22/18 06:55 Glucose 188 mg/dL (70-105) H 04/22/18 06:55 POC Glucose 251 mg/dL (70-99) H 04/21/18 20:53 Fluid Appearance Cloudy (Clear) A 04/20/18 09:55 - Microbiology Findings Microbiology Findings: Microbiology, Last 48 Hours 04/19/18 10:10 Sputum Culture - Final Sputum 04/20/18 09:55 Respiratory Culture - Final Left Upper Lobe Lung 04/20/18 09:55 Respiratory Culture - Final Left Upper Lobe Lung 04/20/18 09:55 Acid Fast Stain - Final Left Upper Lobe Lung 04/20/18 09:55 Acid Fast Stain - Final Left Upper Lobe Lung - Clinical Findings Intake & Output: Intake & Output 04/21/18 04/22/18 04/22/18 23:59 07:59 15:59 Intake Total 270 / 270 Output Total 2150 / 2150 500 / 500 Balance -1880 / -1880 -500 / -500 Weight 114.1 kg Consult Discharge Plan - Plan Additional Instructions: Please call to set up a primary care doctor. Referrals: Nayan Lee MD [Partnered Physician] - (Hospital follow up appointment has been requested. Our offices will call with an appointment time and date.) NONE,PCP [Primary Care Provider] - Prescriptions: Amoxicillin/Clavulanate [Augmentin] 875 mg PO BIDWM #14 tablet RX: Polyethylene Glycol 3350 [MiraLAX] 17 gm PO DAILY PRN #30 powd.pack PRN Reason: Constipation predniSONE [PredniSONE] 40 mg PO DAILY 5 Days #5 tablet <Cyndy Ac M - Last Filed: 04/22/18 22:29> Date of Encounter: 04/22/18 Objective PUL Vital signs: Last Vital Signs Temp 97.5 F L 04/22/18 07:05 Pulse 79 04/22/18 07:05 Resp 16 04/22/18 10:03 BP 135/87 04/22/18 07:05 Pulse Ox 94 04/22/18 10:03 Results - Laboratory Findings CBC and BMP: 04/22/18 06:55 04/22/18 06:55 PT/INR, D-dimer PT 12.4 Seconds (9.4-12.1) H 04/18/18 15:27 Abnormal lab findings: Abnormal lab results WBC 15.3 K/mcL (4.3-11.1) H 04/22/18 06:55 RBC 5.63 M/mcL (4.19-5.50) H 04/22/18 06:55 Hct 50.4 % (37.5-50.1) H 04/22/18 06:55 Neutrophils # 13.3 K/mcL (1.6-8.9) H 04/22/18 06:55 PT 12.4 Seconds (9.4-12.1) H 04/18/18 15:27 Carbon Dioxide 22 mEq/L (23-29) L 04/22/18 06:55 Glucose 188 mg/dL (70-105) H 04/22/18 06:55 POC Glucose 251 mg/dL (70-99) H 04/21/18 20:53 Fluid Appearance Cloudy (Clear) A 04/20/18 09:55 - Microbiology Findings Microbiology Findings: Microbiology, Last 48 Hours 04/21/18 12:40 Gram Stain - Final Left Upper Lobe Lung 04/19/18 10:10 Sputum Culture - Final Sputum 04/20/18 09:55 Respiratory Culture - Final Left Upper Lobe Lung 04/20/18 09:55 Respiratory Culture - Final Left Upper Lobe Lung 04/20/18 09:55 Acid Fast Stain - Final Left Upper Lobe Lung 04/20/18 09:55 Acid Fast Stain - Final Left Upper Lobe Lung - Clinical Findings Intake & Output: Intake & Output 04/22/18 04/22/18 04/22/18 07:59 15:59 23:59 Output Total 500 / 500 350 / 350 Balance -500 / -500 -350 / -350 Weight 114.1 kg - Attending Attestation I examined this patient and my medical decision-making was reviewed with the Resident Physician. I agree with the documented findings, disposition and treatment plan as described except to the extent set forth below. Patient seen and examined. Labs, radiology, chart personally reviewed. 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 Patient needs to follow-up as outpatient and he will need follow-up images. It is important for patient to avoid any smoking tobacco. Thank you for consultation. Oxygen therapy would be important to keep SPO2 around 90%. Patient will need to patient work up on pulmonary function tests.
--- NOTE | 2018-04-22 09:48 | Discharge Summary ---
- NOTES TO OUTPATIENT PROVIDER Notes to Outpatient Provider: f/u with Pulmonology within 2 weeks for bronchoscopy results. f/u with PCP within 1 week and schedule a colonoscopy. Orders not resulted at time of discharge: Pending orders 04/19/18 08:07 CK IgG MICHAEL rflx IFA AM 0400 Erythropoietin Routine 04/20/18 08:57 Cytology [PTH] Routine 04/20/18 09:55 AFB Culture, Respiratory [TB] Routine AFB Culture, Respiratory [TB] Routine AFB Smear [TB] Routine AFB Smear [TB] Routine Fungal Culture [MYC] Routine Fungal Culture [MYC] Routine Legionella Culture [RM] Routine Legionella Culture [RM] Routine Resp.Virus Panel,Body Fl Routine Resp.Virus Panel,Body Fl Routine 04/21/18 12:38 Cytology [PTH] Routine 04/21/18 12:40 Gram Stain [RM] Routine Date of Encounter: 04/22/18 Time of Encounter: 09:43 - Discharge Diagnosis (1) Pneumonia Priority: Primary Status: Acute Qualifiers: Pneumonia type: due to unspecified organism Laterality: unspecified laterality Lung location: unspecified part of lung Qualified Code(s): J18.9 - Pneumonia, unspecified organism (2) Hemoptysis Priority: Primary Status: Acute (3) Hyperlipidemia Priority: Secondary Status: Acute Qualifiers: Hyperlipidemia type: pure hypercholesterolemia Qualified Code(s): E78.00 - Pure hypercholesterolemia, unspecified; E78.0 - Pure hypercholesterolemia (4) Smoker Priority: Secondary Status: Chronic (5) Hypertension Priority: Secondary Status: Chronic Qualifiers: Hypertension type: essential hypertension Qualified Code(s): I10 - Essential (primary) hypertension (6) DVT prophylaxis Priority: Primary Status: Acute Hospital course: Mr. Alcazar is a 58 year old male with hx of smoking, HTN, HLP, and BPH presents with hemoptysis with significant amount and is bright red blood and started 2 days ago the patient has a history of smoking but does not eyes any weight loss. He does not use any anticoagulant medication including aspirin. Has had significant fatigue over the last 6 months. He is not more short of breath than usual. Has never been diagnosed with COPD. He does have also some rhinorrhea but no complaint of fever. No blood in the urine or stool. No bruising of the skin or skin rash. No pain or numbness of the extremities. No sneezing. No blurred vision. Social history: Smoker, no drugs. CTA chest showed : 1. Negative for acute pulmonary embolism. 2. Airspace opacification left upper lobe could represent pneumonia. 3. Bronchial wall thickening lower lobes bilaterally could represent acute or chronic bronchitis. Patient was started on IV antibiotics with Rocephin and azithromycin. He underwent a bronchoscopy on 04/20, dry blood clots was detected on lingular branch of left upper lobe, mucus plug was found on Lavage fluid, no intra-b ronchial lesion detected. However, patient continued to have hemoptysis after the procedure, a repeat bronchoscopy was performed on the second day which revealed the essentially the same finding, BAL was performed and sent for cytology and culture. Patient hemoptysis abated after the procedure, although he had one episode of epistaxis which was abated by saline nasal spray. On the discharge today, patient has no further cough up of blood, his vital signs were stable and labs were unremarkable. Patient will be discharged home today, he was instructed to continue take oral antibiotics as scheduled. He will follow up with pulmonology for the bronchoscopy study results, he will also follow-up with PCP for schedule of PFT and colonoscopy. He has no sob and never was diagnosed with COPD, he does not take any inhaler at home. Therefore prednisone and inhalers were not prescribed. Discharge discussed with: patient Time spent discussing smoking cessation with patient: more than 10 minutes - Time Spent with Patient Total time spent providing and/or coordinating discharge services: 45 mins Greater than 30 minutes - Discharge Medications Prescriptions: Amoxicillin/Clavulanate [Augmentin] 875 mg PO BIDWM #14 tablet Polyethylene Glycol 3350 [MiraLAX] 17 gm PO DAILY PRN #30 powd.pack PRN Reason: Constipation predniSONE [PredniSONE] 40 mg PO DAILY 5 Days #5 tablet Home Medications: Amoxicillin/Clavulanate [Augmentin] 875 mg PO BIDWM #14 tablet 04/22/18 [Rx] Polyethylene Glycol 3350 [MiraLAX] 17 gm PO DAILY PRN #30 powd.pack 04/22/18 [Rx] Saline Nasal Hindman [[place] Nasal Hindman] 2 spray NS Q2H PRN bottle 04/22/18 [Rx] Simvastatin [Zocor] 10 mg PO HS tablet 04/22/18 [Rx] Tamsulosin [Flomax] 0.4 mg PO DAILY capsule 04/22/18 [Rx] amLODIPine [Norvasc] 5 mg PO DAILY tablet 04/22/18 [Rx] predniSONE [PredniSONE] 40 mg PO DAILY 5 Days #5 tablet 04/22/18 [Rx] Allergies/Adverse Reactions: Allergy/AdvReac Type Severity Reaction Status Date / Time No Known Allergies Allergy Verified 04/20/18 11:25 Date of admission: 04/21/18 12:57 Primary care physician: PCP NONE Consults: 04/19/18 08:56 Consult to Pulmonology [CONS] Routine Consulting Provider: [facility] Reason for Consult: hemoptysis Call Completed: Yes 04/21/18 08:27 Consult to Nurse Navigator [CONS] Routine Comment: PNEUMONIA Anticipated date of discharge: 04/22/18 - Constitutional Vitals: Temp Pulse Resp BP Pulse Ox 97.5 F L 79 16 135/87 95 04/22/18 07:05 04/22/18 07:05 04/22/18 07:05 04/22/18 07:05 04/22/18 08:30 General appearance: Present: cooperative, A&O X 3, answers questions appropriately Exam: PHYSICAL EXAMINATION: GENERAL APPEARANCE: The patient is alert, oriented and in no acute distress. HEENT: Head is normocephalic. The sinuses are nontender. Pupils are equal and reactive. The nares are patent. Oropharynx clear without lesions. NECK: Supple without lymphadenopathy. HEART: Regular rate and rhythm. LUNGS: bilateral fine wheezes are heard. ABDOMEN: Soft, nontender, nondistended with good bowel sounds heard. Inguinal area is normal. EXTREMITIES: Without cyanosis, clubbing or edema. NEUROLOGICAL: Gross nonfocal. SKIN: Warm and dry without any rash. - Patient Status Disposition: Home, Self-Care Condition: Fair Functional capacity at discharge: independent ambulation Overall status at discharge: patient is back to baseline - Discharge Instructions Follow Up With: Nayan Lee MD [Partnered Physician] - (Hospital follow up appointment has been requested. Our offices will call with an appointment time and date.) NONE,PCP [Primary Care Provider] - Forms: Inpatient Work/School Release Additional Instructions: Please call to set up a primary care doctor. - Diet and Activity Activity: increase activity as tolerated Diet: advance to your usual diet
[2018-04-22] MEDS: Budesonide/Formoterol 160/4.5 1 PUFF INH IH SCH (09:59)
[2018-04-23 15:32] LABS: ANA IgG by ELISA NONE DETECTED (None Detected)
== END 2018-04-22 15:59 | disposition home or self-care (01) | DRG 194 ==
LOC: EMEROOARM 13:53 → 3BNU 13:53
PROVIDERS: ADMIT Internal Medicine; ATTEND Internal Medicine
PROC: ENDOBRF (2018-04-21 11:35)